=== PATIENT | male | born 1965 | race Caucasian/White ===

== ENCOUNTER → 2024-01-20 12:39 | Outpatient (REF) | payer MEDICARE, SELFPAY ==
[2024-01-23 12:44] LABS: CD4 % of Cells Analyzed 25 % (32-64); CD4 Absolute Count 539 cells/uL (430-1800)
[2024-01-24 15:39] LABS: HIV-1 Quan NAAT Interpretation Detected (Not Detected); HIV-1 Quant NAAT (copies/ml) 54 cpy/mL; HIV-1 Quant NAAT (log copy/mL) 1.73 log cpy/mL
== END ==
LOC: HWLAB 12:39
PROVIDERS: ATTENDING PHYSICIAN Student in an Organized Health Care Education/Training Program; FAMILY PHYSICIAN Internal Medicine
DX: B20 Human immunodeficiency virus [HIV] disease (principal)
CPT/HCPCS: 36415; 86361; 87536

== ENCOUNTER → 2024-02-09 15:50 | Outpatient (REF) | payer MEDICARE, SELFPAY ==
[2024-02-12 15:52] LABS: Aptima Media Type MultiTest Swab; Chlamydia trachomatis by TMA Negative (Negative); Neisseria gonorrhoeae by TMA Negative (Negative); Specimen Source Rectal; Specimen Source Throat
== END ==
LOC: CLAB 15:50
PROVIDERS: ATTENDING PHYSICIAN Student in an Organized Health Care Education/Training Program
DX: Z72.52 High risk homosexual behavior (principal)
CPT/HCPCS: 87491; 87591

== ENCOUNTER → 2024-03-09 12:57 | Outpatient (REF) | payer MEDICARE, SELFPAY ==
[2024-03-13 06:08] LABS: HPV, High Risk Detected; HPV, High Risk Source Anal
[2024-03-21 07:41] LABS: HPV Genotype 16 Not Detected; HPV Genotype 18/45 by TMA Not Detected; HPV Genotype Source Anal
== END ==
LOC: CLAB 12:57
PROVIDERS: ATTENDING PHYSICIAN Surgery
DX: Z86.19 Personal history of other infectious and parasitic diseases (principal)
CPT/HCPCS: 87624; 87625; 88112

== ENCOUNTER → 2024-04-11 16:05 | Outpatient (REF) | payer MEDICARE, SELFPAY ==
[2024-04-12 16:06] LABS: Syphilis/T. pallidum Ab Reflex Negative (Negative)
== END ==
LOC: REG 16:05
PROVIDERS: ATTENDING PHYSICIAN Student in an Organized Health Care Education/Training Program; FAMILY PHYSICIAN Internal Medicine
DX: Z72.52 High risk homosexual behavior (principal)
CPT/HCPCS: 36415; 86780; 87491; 87591

== ENCOUNTER 2024-05-18 06:33 | Day surgery (SDC) | payer MEDICARE, SELFPAY ==
[2024-05-17 13:41] VITALS: BMI 28.4
[2024-05-18] VITALS (13 sets, daily range): BP systolic 108–143; BP diastolic 70–89; BMI 28.4
[2024-05-18] MEDS: CELEBREX 200 MG PO (10:04)
[2024-05-18] MEDS: TYLENOL 1000 MG PO (10:04)
[2024-05-18] MEDS: NORMOSOL-R 1000 IV (10:04)
--- NOTE | 2024-05-18 13:50 | W.IMMPOSTOP ---
Surgical Immed Post Op Note
-
Primary Surgeon: Melvin Patel MD
Assisting Surgeon: None
Pre-op Diagnosis: Anal HSIL (ie- anal dysplasia), h/o HIV
Post-op Diagnosis: Same
Procedure Performed: High-resolution anoscopy, multiple biopsies, fulguration
Anesthesia Type: Sedation converted to general intraoperatively, with local
Specimen / Cultures: Multiple specimens, per op note
Estimated Blood Loss: 10 mL
Complications: During surgery, anesthesia noted desaturation; surgery was halted and patient was placed back on stretcher in supine position with return of saturation; patient was then intubated for general anesthesia
Operative Findings: Superficial (i.e. within the first 1 to 2 cm of the anal verge) circumferential acetowhite/Lugol's negative patch, multiple biopsies; areas of mosaicism noted deep in the anal canal near transformation zone, multiple biopsies; 60
mL of 0.25% Marcaine with dexamethasone injected perianally and for a intramuscular block (no pudendal nerve block due to prior history of urinary retention after hemorrhoidectomy)
--- NOTE | 2024-05-18 13:54 | OR.RPT ---
Operative Report
Operative Report
DATE OF OPERATION: 05/18/2024
SURGEON: Melvin Patel MD
PREOPERATIVE DIAGNOSIS: Anal high-grade squamous intraepithelial lesion, history of HIV
POSTOPERATIVE DIAGNOSIS: Same
OPERATION: Exam under anesthesia, high-resolution anoscopy, multiple anal biopsies, fulguration of lesions
ASSISTANTS:
1. None
ANESTHESIA: MAC converted to general, with local
ESTIMATED BLOOD LOSS: 10 mL
FINDINGS:
1. Circumferential band in the distal anal canal, within 1.5 cm from the anal verge, that was acetowhite and Lugol's negative; obtained biopsies in the right lateral, right lateral/anterior, anterior, left lateral, and posterior positions;
fulgurated at about 25% of the area associated with biopsy sites
2. Proximal anal canal was also acetowhite but Lugol's positive
3. Along the transformation zone, 3 areas of mosaicism; obtain biopsies in the deep right lateral, deep anterior and deep posterior positions
SPECIMENS:
1. Right lateral anal biopsy
2. Right lateral anterior anal biopsy
3. Deep right lateral anal biopsy
4. Deep anterior anal biopsy
5. Anterior anal biopsy
6. Left lateral anal biopsy
7. Deep posterior anal biopsy
8. Posterior anal biopsy
DRAINS: None
COMPLICATIONS: Oxygen desaturation at the beginning of case requiring conversion to general
INDICATIONS: The patient is a 59-year-old male who has a history of HIV, well-controlled, and was discovered to have high-grade squamous intraepithelial lesion on an anal Pap. Therefore, the patient was recommended to have hide�resolution anoscopy
with possible biopsy and fulguration. After discussion with the patient, it was determined to be better to perform the procedure with anesthesia as opposed to the office. The operation was discussed with the patient in detail, including the risks,
benefits and alternatives. Risks described included, but not limited to bleeding, infection, urinary retention, damage to nearby structures such as the anal sphincter, fecal incontinence, anal stenosis, missed lesions, recurrence, progression to
anal cancer despite monitoring and treatment, reaction to the reagents used, and anesthetic risks. The patient understood and agreed to proceed. The consent was signed and placed in the chart.
PROCEDURE IN DETAIL: The patient was taken to the operating room. The patient was then placed on the operating table in prone position. Sequential compression devices were placed bilaterally. Sedation was commenced without complication. Two seat
belts were secured around the legs and upper back. The buttocks were taped apart. The perineum was shaved, prepped and draped in the usual fashion. A time-out was then performed verifying the correct patient, procedure, operative site,
positioning, and special equipment.
Local anesthesia used was a mixture of 60 mL of 0.25% Marcaine without epinephrine and 0.6 mg of dexamethasone. 40 mL was injected perianally at the beginning of the case. The anorectal exam was performed assessing all four quadrants of the anal
canal using Hill-Terry retractors in progressively increasing size. There were a number of small external hemorrhoids circumferentially that were not thrombosed, irritated or bleeding. These were left alone. There were small to moderate-sized
3�column hemorrhoids with some mild irritation but not excessively swollen or bleeding. These were left alone to focus on the high-resolution anoscopy with possible biopsy. No other obvious lesions were noted in the perianal region or anal canal.
I placed a Ray-harjinder soaked in 5% acetic acid within the anal canal and folded an external portion of it to cover the richi-anal region. This was left in place for 3 minutes and then removed. The anal canal was again visualized with Hill-Furguson
retrators. Each quadrant was examined using the laparoscope on highest zoom, allowing for high-resolution. Lugol's 2% solution was then swabbed on to each quadrant under direct visualization using high-resolution. In the right lateral position,
there was a band of acetowhite/Lugol's negative within the first 1.5 cm of the anal canal (i.e.�distal anal canal). I took 2 superficial biopsies in the right lateral and right lateral anterior positions (biopsies #1 and 2). At this moment,
anesthesia noted that the patient was having trouble breathing and was having desaturations on the monitor. After a quick discussion with anesthesia, we halted the procedure, removed the drapes and placed the patient back on the stretcher in supine
position to improve his oxygenation. His oxygen saturation improved within 1-2 minutes. In order to proceed, anesthesia decided to intubate the patient and proceed with general anesthesia. After the patient was intubated, he was placed back on
the operating room table in prone position with gel pads in place. His arms were secured to the arm boards and two seatbelts were secured over his upper back and lower extremities. The buttocks were taped apart and the perianal area was prepped
and draped again in a sterile fashion. The procedure was restarted. I placed another Ray-Harjinder soaked in 5% acetic acid within the anal canal with an external portion of it covering the perianal region. After 2 minutes, this was removed.
I evaluated the right lateral quadrant again. Using Bovie electrocautery, I obtained hemostasis and superficially cauterized the area of the biopsies I had just taken (about 20% of the quadrant). I noted some mosaicism deep in the anal canal near
the transformation zone, I took a superficial biopsy of this (biopsy #3). I then obtained hemostasis with electrocautery. No other concerning lesions were noted. I then checked the anterior quadrant. Again noted was a band of acetowhite/Lugol's
negative within the first 1.5 cm of the anal canal as well as mosaicism near the transformation zone. Each of these areas were biopsied respectively (biopsy #4 and 5) and hemostasis was controlled with electrocautery. I evaluated the left lateral
quadrant. Again was noted a band of acetowhite/Lugol's negative within the first 1.5 cm of the anal canal, which was biopsied (biopsy #6). No other areas of concern were noted. I then evaluated the posterior quadrant. Again noted was a band of
acetowhite/Lugol's negative within the first 1.5 cm of the anal canal as well as mosaicism near the transformation zone. Each area was biopsied (biopsies #7 and 8) and hemostasis confirmed with electrocautery.
At the end of the case, the remaining 20 mL of local were injected around the surgical site and perianally. A pudendal nerve block was not performed due to his previous history of urinary retention after hemorrhoid surgery. Hemostasis was
reassessed once more using the small Hill-Terry and was confirmed. A pea-sized amount of Dibucaine was then applied to the external portion of the wound.
At this point, the procedure was complete. All needle, sponge and instrument counts were correct. The patient tolerated the procedure well and was transferred to the recovery room in stable condition with gauze dressing in place secured with silk
tape.
DICTATED BY: Melvin Patel MD
== END 2024-05-18 16:38 | disposition home or self-care (01) ==
LOC: SDS 06:33
PROVIDERS: ATTENDING PHYSICIAN Surgery; FAMILY PHYSICIAN Internal Medicine; OTHER PHYSICIAN Student in an Organized Health Care Education/Training Program
DX: D01.3 Carcinoma in situ of anus and anal canal (principal); K62.82 Dysplasia of anus; Z21 Asymptomatic human immunodeficiency virus [HIV] infection status
CPT/HCPCS: 46924; 46607; 88305; 36415; 88341; 88342; 93005

== ENCOUNTER → 2024-06-01 14:44 | Outpatient (REF) | payer MEDICARE, SELFPAY | LOC: HWRAD 14:44 | PROVIDERS: ATTENDING PHYSICIAN Internal Medicine Critical Care Medicine; FAMILY PHYSICIAN Internal Medicine | DX: R91.8 Other nonspecific abnormal finding of lung field (principal) | CPT/HCPCS: 71250 ==

== ENCOUNTER 2024-07-05 23:07 | Emergency (ER) | payer MEDICARE, SELFPAY ==
[2024-07-05 23:15] VITALS: BP 114/78
[2024-07-06 00:38] VITALS: BP 126/89; BMI 27.6
[2024-07-06 01:09] LABS: Hematocrit 36.6 % (39.0-52.0); Hemoglobin 12.2 g/dL (13.0-18.0); Mean Corp Hgb Conc. 33.3 g/dL (33.0-37.0); Mean Corpuscular Volume 77.9 fL (80.0-94.0); Mean Platelet Volume 9.5 fL (7.4-10.4); Platelet Count 247 10^3/uL (130-400); Red Cell Dist. Width 15.4 % (11.5-14.5); White Blood Cell Count 7.5 10^3/uL (4.8-10.8)
[2024-07-06 01:23] LABS: ALT (SGPT) 21 U/L (0-50); AST (SGOT) 33 U/L (17-59); Albumin 4.2 g/dl (3.5-5.0); Alkaline Phosphatase 116 U/L (38-126); Blood Urea Nitrogen 22 mg/dl (9-20); Carbon Dioxide 26 mmol/L (22-30); Chloride 107 mmol/L (98-107); Estimated Creatinine Clearance 65 ml/min; Glucose 93 mg/dl (70-99); Potassium 4.6 mmol/L (3.5-5.1); Sodium 140 mmol/L (135-145); Total Bilirubin 0.4 mg/dl (0.2-1.3); eGFR > 60.00
--- NOTE | 2024-07-06 01:28 | ED.GENMED ---
History of Present Illness
General
Chief Complaint: Weakness
Source: patient
Exam Limitations: none
Time Seen by Provider: 07/06/24 00:58
Nursing documentation reviewed up to this point in time: agreed with
History of Present Illness
History of Present Illness:
59-year-old male presenting department complaining weakness, breaking out in sweats, heart pounding. He also complains of swelling in his left neck. He was treated with antibiotics for it. He has a history of HIV, and states his levels, viral
load have been normal.
Past History
Past History
ED Past Medical History: CAD, Cancer (Skin CA), CHF, COPD (Emphysema), GERD, HTN, Hypercholesterolemia, [place] (X 3), Psychiatric (Anxiety, Depression, Panic disorder) and Other (HIV, DVT, bilateral iliac aneurysm, chronic back pain, Duodenal hernia,
PNA, PE, Renal calculus, Pilonidal cyst)
ED Past Surgical History: Cardiac (Stents X3), Orthopedic (Lumbar discectomy) and Other (Hemorrhoidectomy)
Social History
Tobacco: Former smoker
Alcohol: Occasional (3 bottles in one week)
Drug: Marijuana
Personal: Other (Seperated)
Living: with roommate
Employment: Disabled
Family History
Family History: CAD
Review of Systems
Review of Systems
Allergies reviewed?: Yes
All Other Systems: Not applicable
Constitutional: Reports no symptoms
EENT: Reports other (Neck swelling)
Respiratory: Reports no symptoms
Cardiac: Reports diaphoresis; Denies chest pain
ABD/GI: Reports no symptoms
: Reports no symptoms
Musculoskeletal: Reports no symptoms
Skin: Reports no symptoms
Neurological: Reports weakness
Endocrine: Reports no symptoms
Hematologic/Lymphatic: Reports no symptoms
Psychiatric: Reports no symptoms
Phy Exam
Physical Exam
Physical Exam:
Physical Exam
General: no apparent distress, not acutely ill
Neck: supple. no meningeal signs. normal posterior pharynx, swelling left anterior cervical chain
Heart: s1/s2 regular rate and rhythm, no murmur. equal radial
pulses.
HEENT: Pupils equal round reactive to light, EOMI
Lungs: no acute respiratory distress. clear bilaterally
Abdomen: normal bowel sounds. not tender. no CVAT
Neuro: alert and oriented. no focal neurological deficits cranial nerves II through XII intact
Skin: no rash
Psychiatric: well kept. interactive and cooperative
Extremities: no edema. no calf tenderness. negative homans. good distal pulses
Course
Orders/Labs/Results
Orders:
Orders
07/06/24 00:45
Electrocardiogram (*1) Urgent
Reason for Study: Vertigo / Dizzy
07/06/24 00:46
EKG- Treatment ONCE
07/06/24 00:56
Complete Blood Count/With Diff Urgent
Comprehensive Metabolic Panel Urgent
Troponin I Urgent
07/06/24 01:27
CT Neck With Iv Contrast Urgent
Comment:
Reason For Exam: left neck swelling, diaphoretic
07/06/24 02:39
Amoxicillin [Amoxil] 500 mg PO NOW STA
Abnormal Lab Results
07/06/24
00:56
Hgb 12.2 L g/dL
(13.0-18.0)
Hct 36.6 L %
(39.0-52.0)
MCV 77.9 L fL
(80.0-94.0)
MCH 26.0 L pg
(27.0-31.0)
RDW 15.4 H %
(11.5-14.5)
Absolute Monos (auto) 0.8 H 10^3/uL
(0.1-0.6)
Monocytes % 10.7 H %
(1.7-9.3)
BUN 22 H mg/dl
(9-20)
07/06/24 00:56
07/06/24 00:56
Vital Signs
Initial and Last Documented VS:
Initial Vital Signs
Temp Pulse Resp BP Pulse Ox
97.7 F 74 16 114/78 98
07/05/24 23:15 07/05/24 23:15 07/05/24 23:15 07/05/24 23:15 07/05/24 23:15
Last Documented Vital Signs
Temp Pulse Resp BP Pulse Ox
97.7 F 74 16 126/89 97
07/05/24 23:15 07/05/24 23:15 07/05/24 23:15 07/06/24 00:38 07/06/24 00:45
MDM/Problems Addressed
Differential Diagnosis Includes:
Abscess lymph node, uvulitis, ACS
MDM/Problems Addressed:
59-year-old male with weakness, sweats, possibly due to uvulitis. No other focal infection found. No signs of airway compromise. Stable for discharge.
Chronic conditions affecting care: Other (HIV)
*Radiology
Radiology exam reviewed: radiology read reviewed (CT neck shows signs of uvulitis and left-sided sialolith)
*Pulse Oximetry
Patient hypoxic: no
*EKG
Interpreted by ED Provider?: Yes
EKG Intrepretation Date: 07/06/24
EKG Intrepretation Time: 01:07
Interpretation: abnormal
Comparison EKG: no comparison EKG present
Heart Rate: 66
Rate: normal
Rhythm: sinus
[place]: normal axis
Interval: normal interval
QRS Pattern: right bundle branch block
Ischemia: no ischemia
*Customer Specialist Interpretation
Rate: Customer Specialist- N/A
*Critical Care Note
Total Time (30-74mins, 75-104mins- exclusive of procedures): Not Applicable
Patient Management
Social determinants of health affecting care: Living situation
Escalation/DeEscalation of care consider admission/obs:
Admit not indicated
ED Attending Note
-
Portions of this chart may have been created with voice recognition software.� Occasional wrong word or��sound alike� substitutions may have occurred due to the inherent limitations of voice recognition software.
Discharge Plan
Departure
Patient Disposition: Home (Routine Discharge)
Date of Disposition: 07/06/24
Time of Disposition: 02:41
Patient with high blood pressure during this ER visit?: Yes
Condition: Good
Discharge Problem:
Uvulitis
Instructions: Generalized Weakness (DC), BLOOD PRESSURE
Prescriptions:
New
amoxicillin 500 mg capsule
500 mg PO TID Qty: 21 0RF
No Action
citalopram 20 MG tablet
40 mg PO HS
dexlansoprazole [Dexilant] 30 MG capsule,biphase delayed releas
60 mg PO DAILY
clonazepam 0.5 MG tablet
1.5 mg PO HS
clonazepam 0.5 MG tablet
0.5 mg PO DAILY
cholecalciferol (vitamin D3) [Vitamin D3] 50 mcg (2,000 unit) Capsule
50 mcg PO DAILY
Eliquis 5 MG tablet
5 mg PO BID
Rx Instructions:
take 2.5mg until on paxlovid; resume 5mg BID when finished paxlovid
loratadine [Claritin] 10 mg Tablet
10 mg PO HS
valsartan 160 mg Tablet
160 mg PO DAILY
Biktarvy 50-200-25 mg Tablet
1 tab PO HS
Trelegy Ellipta 200-62.5-25 mcg Blister With Device
1 inh INHALATION DAILY
fluticasone propionate [Flonase] 50 mcg/actuation [place],Suspension
2 spray INTRANASAL DAILY
Marijuana
hydrocodone-acetaminophen 5-300 mg tablet
1 tab PO Q6H PRN (Reason: Pain) Qty: 14 0RF
Referrals:
Loy Castillo MD [Family Provider] - Call in 1-3 days for appt
Interventions
Interventions:
*Risk Screen - Suicide Last Done: 07/05/24 23:15
*General Assessment Last Done: 07/06/24 00:39
*Neglect/Abuse Screening Last Done: 07/05/24 23:15
ED- Fall Risk Assessment Last Done: 07/06/24 00:39
*ED COVID-19 Vaccine History Last Done: 07/06/24 00:39
ED- Cardiac Assessment Last Done: 07/06/24 00:39
ED- Neurological Assessment Last Done: 07/06/24 00:39
ED- Pulmonary Assessment Last Done: 07/06/24 00:39
Discharge Date and Time
Print Language: PERSIAN
[2024-07-06 01:31] LABS: Troponin I < 0.012 ng/ml
[2024-07-06 02:02] LABS: % Basophils 1.2 % (0-2); % Eosinophils 1.9 % (0-6); % Immature Granulocytes 0.1 % (0-0.5); % Lymphocytes 38.2 % (20.5-51.1); % Monocytes 10.7 % (1.7-9.3); % Neutrophils 47.9 % (42.2-75.2); Absolute Basophils 0.1 10^3/uL (0-0.2); Absolute Eosinophils 0.1 10^3/uL (0-0.7); Absolute Lymphocytes 2.9 10^3/uL (1.2-3.4); Absolute Monocytes 0.8 10^3/uL (0.1-0.6); Absolute Neutrophils 3.6 10^3/uL (1.4-6.5); Nucleated Red Blood Cells % 0 % (-)
[2024-07-06] MEDS: AMOXIL 500 MG PO (02:44)
== END 2024-07-06 02:52 | disposition home or self-care (01) ==
LOC: EMR 23:07
PROVIDERS: Student in an Organized Health Care Education/Training Program; EMERGENCY PHYSICIAN Emergency Medicine; FAMILY PHYSICIAN Internal Medicine
DX: K12.2 Cellulitis and abscess of mouth (principal); I25.10 Atherosclerotic heart disease of native coronary artery without angina pectoris; I11.0 Hypertensive heart disease with heart failure; I50.9 Heart failure, unspecified; J43.9 Emphysema, unspecified; E78.00 Pure hypercholesterolemia, unspecified; F41.8 Other specified anxiety disorders; I25.2 Old myocardial infarction; G89.29 Other chronic pain; K21.9 Gastro-esophageal reflux disease without esophagitis; Z21 Asymptomatic human immunodeficiency virus [HIV] infection status; Z82.49 Family history of ischemic heart disease and other diseases of the circulatory system; Z85.828 Personal history of other malignant neoplasm of skin; Z86.718 Personal history of other venous thrombosis and embolism; Z87.442 Personal history of urinary calculi; Z87.891 Personal history of nicotine dependence; Z95.5 Presence of coronary angioplasty implant and graft
CPT/HCPCS: 99284; 70491; 80053; 84484; 85025; 93005; Q9967

== ENCOUNTER → 2024-08-15 13:03 | Outpatient (REF) | payer MEDICARE, SELFPAY ==
[2024-08-15 16:10] LABS: ALT (SGPT) 17 U/L (0-50); AST (SGOT) 24 U/L (17-59); Albumin 3.9 g/dl (3.5-5.0); Alkaline Phosphatase 103 U/L (38-126); Blood Urea Nitrogen 14 mg/dl (9-20); Calcium 9.1 mg/dl (8.4-10.2); Carbon Dioxide 23 mmol/L (22-30); Chloride 106 mmol/L (98-107); Glucose 100 mg/dl (70-99); HDL Cholesterol 46 mg/dl; LDL Cholesterol, Calculated 135 mg/dl; Potassium 4.1 mmol/L (3.5-5.1); Sodium 141 mmol/L (135-145); Total Bilirubin 0.4 mg/dl (0.2-1.3); Total Cholesterol 198 mg/dl (50-199); Total Protein 6.8 g/dl (6.3-8.2); Triglyceride 86 mg/dl (10-149); Very Low Density Lipoprotein 17 mg/dl (0-30); eGFR > 60.00
[2024-08-15 16:25] LABS: Vitamin D, 25-OH*** 43.9 ng/mL (30-80)
[2024-08-15 16:39] LABS: PSA, Total - Screen 1.23 ng/ml (0.0-4.0); TSH 1.18 uIU/ml (0.47-4.68)
[2024-08-15 16:45] LABS: Urine Albumin Negative (Neg - Trace); Urine Bilirubin 1+ (Negative); Urine Character Clear (Clear); Urine Color Yellow; Urine Glucose Negative (Negative); Urine Ketone Negative (Negative); Urine Leukocyte Negative (Negative); Urine Nitrite Negative (Negative); Urine Occult Blood Trace (Negative); Urine Urobilinogen 1+ (Neg - 1+)
[2024-08-15 16:49] LABS: Hematocrit 37.7 % (39.0-52.0); Hemoglobin 12.1 g/dL (13.0-18.0); Mean Corp Hgb Conc. 32.1 g/dL (33.0-37.0); Mean Corpuscular Hgb 24.9 pg (27.0-31.0); Mean Corpuscular Volume 77.6 fL (80.0-94.0); Platelet Count 274 10^3/uL (130-400); Red Blood Cell Count 4.86 10^6/uL (4.70-6.10); Red Cell Dist. Width 15.7 % (11.5-14.5)
[2024-08-15 16:53] LABS: Urine Mucus Many; Urine Squamous Cell 0-2 /LPF (Few)
[2024-08-15 16:54] LABS: Urine Bacteria Few (Negative); Urine White Cell 0-2 /HPF (0-5)
[2024-08-15 17:08] LABS: % Basophils 1.4 % (0-2); % Eosinophils 2.8 % (0-6); % Immature Granulocytes 0.2 % (0-0.5); % Lymphocytes 39.9 % (20.5-51.1); % Monocytes 10.7 % (1.7-9.3); Absolute Basophils 0.1 10^3/uL (0-0.2); Absolute Eosinophils 0.1 10^3/uL (0-0.7); Absolute Monocytes 0.5 10^3/uL (0.1-0.6); Absolute Neutrophils 2.3 10^3/uL (1.4-6.5); Nucleated Red Blood Cells % 0 % (-)
[2024-08-16 09:29] LABS: Glycohemoglobin (HgbA1c) 5.9 % (4.0-5.6)
== END ==
LOC: HWLAB 13:03
PROVIDERS: ATTENDING PHYSICIAN Student in an Organized Health Care Education/Training Program; FAMILY PHYSICIAN Internal Medicine
DX: N52.9 Male erectile dysfunction, unspecified (principal); I10 Essential (primary) hypertension; F41.9 Anxiety disorder, unspecified; R79.89 Other specified abnormal findings of blood chemistry; E78.5 Hyperlipidemia, unspecified; R73.9 Hyperglycemia, unspecified; E55.9 Vitamin D deficiency, unspecified; Z00.00 Encounter for general adult medical examination without abnormal findings; Z21 Asymptomatic human immunodeficiency virus [HIV] infection status; N40.1 Benign prostatic hyperplasia with lower urinary tract symptoms; B20 Human immunodeficiency virus [HIV] disease
CPT/HCPCS: 36415; 80053; 80061; 81003; 81015; 82306; 83036; 84443; 85025; G0103

== ENCOUNTER → 2024-08-16 14:28 | Outpatient (REF) | payer MEDICARE, SELFPAY ==
[2024-08-16 16:47] LABS: HIV Combo Reactive (Negative)
== END ==
LOC: REG 14:28
PROVIDERS: ATTENDING PHYSICIAN Internal Medicine
DX: A64 Unspecified sexually transmitted disease (principal)
CPT/HCPCS: 36415; 86701; 86702; 86780; 87389; 87491; 87591

== ENCOUNTER 2024-09-07 05:02 | Emergency (ER) | payer MEDICARE, OTHER, SELFPAY ==
[2024-09-07] VITALS (7 sets, daily range): BP systolic 114–138; BP diastolic 71–94
--- NOTE | 2024-09-07 06:31 | ED.GENMED ---
History of Present Illness
General
Chief Complaint: Bowel Problem
Source: patient
Time Seen by Provider: 09/07/24 06:02
History of Present Illness
History of Present Illness:
59-year-old male presents to the emergency room complaining of of significant heartburn, nausea, diarrhea which is been bothering him for the past few days but particular over the past 24 hours. He has not had much oral intake. He states his
stools have become loose and oily. He denies any recent travel. He denies any recent antibiotics. No known fever. Patient is HIV positive but is compliant with his medications. He states his CD4 count was greater than 500. His viral load is
'almost' undetectable. Patient states that he recently participated in anolingus and is concerned that he may have contracted an infection.
Past History
Past History
ED Past Medical History: CAD, Cancer (Skin CA), CHF, COPD (Emphysema), GERD, HTN, Hypercholesterolemia, [place] (X 3), Psychiatric (Anxiety, Depression, Panic disorder) and Other (HIV, DVT, bilateral iliac aneurysm, chronic back pain, Duodenal hernia,
PNA, PE, Renal calculus, Pilonidal cyst)
ED Past Surgical History: Cardiac (Stents X3), Orthopedic (Lumbar discectomy) and Other (Hemorrhoidectomy)
Social History
Tobacco: Former smoker
Alcohol: Occasional (3 bottles in one week)
Drug: Marijuana
Personal: Other (Seperated)
Living: with roommate
Employment: Disabled
Family History
Family History: CAD
Phy Exam
Physical Exam
Physical Exam:
General: Awake, Alert, Oriented X3. No acute distress.
Vitals: unremarkable
Head: Atraumatic
Eyes: Pupils equal, EOMI
Throat: Airway intact, no exudates
Neck: Trachea midline
Lungs: Clear and equal b/l
Heart: Regular rate, no murmurs
Abd: Soft, mild upper abd tenderness, mildly distended but not firm, No pulsatile mass
Neuro: Nonfocal
Skin: Warm, dry, no rash
Extremities: pulses equal b/l, no edema
Course
Orders/Labs/Results
Orders:
Orders
09/07/24 06:26
Cardiac Monitoring- Treatment ONCE
0.9% Sodium Chloride 1000 ml [Nss] 1,000 ml IV BOLUS
Famotidine [Pepcid] 20 mg IV NOW STA
Mag Hydrox/Al Hydrox/Simeth [Maalox] 30 ml Phenobarb/Hyoscy/Atropine/Scop [] 10 ml Viscous Lidocaine 2% [Xylocaine Viscous Cup] 10 ml PO NOW
Ondansetron Injectable [Zofran] 4 mg IV NOW STA
09/07/24 06:27
Electrocardiogram (*1) Stat
Reason for Study: Abdominal Pain
CT Abd/Pel (IV only)-DH only Urgent
Comment:
Reason For Exam: abd pain, nausea
EKG- Treatment ONCE
09/07/24 06:45
Complete Blood Count/With Diff Urgent
Comprehensive Metabolic Panel Urgent
Lipase Urgent
09/07/24 06:47
Mag Hydrox/Al Hydrox/Simeth [Maalox] 30 ml .ROUTE .STK-MED ONE
Phenobarb/Hyoscy/Atropine/Scop [] 10 ml .ROUTE .STK-MED ONE
09/07/24 06:48
Viscous Lidocaine 2% [Xylocaine Viscous Cup] 15 ml .ROUTE .STK-MED ONE
09/07/24 08:27
Acetaminophen [Tylenol] 650 mg .ROUTE .STK-MED ONE
Acetaminophen [Tylenol] 650 mg PO NOW STA
Abnormal Lab Results
09/07/24
06:45
RBC 4.65 L 10^6/uL
(4.70-6.10)
Hgb 11.8 L g/dL
(13.0-18.0)
Hct 36.0 L %
(39.0-52.0)
MCV 77.4 L fL
(80.0-94.0)
MCH 25.4 L pg
(27.0-31.0)
MCHC 32.8 L g/dL
(33.0-37.0)
RDW 16.1 H %
(11.5-14.5)
Monocytes % 9.4 H %
(1.7-9.3)
Glucose 101 H mg/dl
(70-99)
09/07/24 06:45
09/07/24 06:45
Vital Signs
Initial and Last Documented VS:
Initial Vital Signs
Temp Pulse Resp BP Pulse Ox
98.7 F 88 26 114/92 96
09/07/24 05:04 09/07/24 05:04 09/07/24 05:04 09/07/24 05:04 09/07/24 05:04
Last Documented Vital Signs
Temp Pulse Resp BP Pulse Ox
98.7 F 67 18 129/73 96
09/07/24 05:04 09/07/24 11:54 09/07/24 09:30 09/07/24 11:54 09/07/24 11:54
MDM/Problems Addressed
Differential Diagnosis Includes:
Viral gastroenteritis, C. difficile, dehydration
MDM/Problems Addressed:
Patient presents with nausea vomiting diarrhea. Since he has been in the emergency room he has not passed any stool. Stool studies were ordered but patient has not been able to provide a specimen. His labs showed normal white count, normal
chemistries. A CT of the abdomen and pelvis was performed which showed some slightly dilated fluid filled loops of small bowel consistent with enteritis. Patient's abdominal exam is benign. Stable for discharge home, brat diet, follow-up with
primary.
*Radiology
Radiology exam reviewed: radiology read reviewed
*Pulse Oximetry
Patient hypoxic: no
*Critical Care Note
Total Time (30-74mins, 75-104mins- exclusive of procedures): Not Applicable
ED Attending Note
-
Portions of this chart may have been created with voice recognition software.� Occasional wrong word or��sound alike� substitutions may have occurred due to the inherent limitations of voice recognition software.
Discharge Plan
Departure
Patient Disposition: Home (Routine Discharge)
Date of Disposition: 09/07/24
Time of Disposition: 11:24
Patient with high blood pressure during this ER visit?: No
Condition: Good
Discharge Problem:
Diarrhea, Nausea & vomiting
Instructions: Diarrhea in teens and adults, Dehydration, Adult (DC)
Prescriptions:
No Action
citalopram 20 MG tablet
40 mg PO HS
dexlansoprazole [Dexilant] 30 MG capsule,biphase delayed releas
60 mg PO DAILY
clonazepam 0.5 MG tablet
1.5 mg PO HS
clonazepam 0.5 MG tablet
0.5 mg PO DAILY
cholecalciferol (vitamin D3) [Vitamin D3] 50 mcg (2,000 unit) Capsule
50 mcg PO DAILY
Eliquis 5 MG tablet
5 mg PO BID
Rx Instructions:
take 2.5mg until on paxlovid; resume 5mg BID when finished paxlovid
loratadine [Claritin] 10 mg Tablet
10 mg PO HS
valsartan 160 mg Tablet
160 mg PO DAILY
Biktarvy 50-200-25 mg Tablet
1 tab PO HS
Trelegy Ellipta 200-62.5-25 mcg Blister With Device
1 inh INHALATION DAILY
fluticasone propionate [Flonase] 50 mcg/actuation [place],Suspension
2 spray INTRANASAL DAILY
Marijuana
hydrocodone-acetaminophen 5-300 mg tablet
1 tab PO Q6H PRN (Reason: Pain) Qty: 14 0RF
amoxicillin 500 mg capsule
500 mg PO TID Qty: 21 0RF
Referrals:
PRIVATE,PHYSICIAN [Family Provider] -
Interventions
Interventions:
*Risk Screen - Suicide Last Done: 09/07/24 05:04
*General Assessment Last Done: 09/07/24 05:53
*Neglect/Abuse Screening Last Done: 09/07/24 05:04
ED- Fall Risk Assessment Last Done: 09/07/24 05:53
*ED COVID-19 Vaccine History Last Done: 09/07/24 05:53
*Nursing Disposition Last Done: 09/07/24 11:54
GR-Gmkloi-Ztefwbkjdu Assessment Last Done: 09/07/24 05:53
Discharge Date and Time
Discharge Date/Time: 09/07/24 11:56
Print Language: CHILEAN
[2024-09-07] MEDS: NSS 1000 IV (06:50)
[2024-09-07] MEDS: PEPCID 20 MG IV (06:50)
[2024-09-07] MEDS: MAALOX 50 PO (06:50)
[2024-09-07 06:51] LABS: % Basophils 0.7 % (0-2); % Eosinophils 2.9 % (0-6); % Immature Granulocytes 0.2 % (0-0.5); % Lymphocytes 39.1 % (20.5-51.1); % Monocytes 9.4 % (1.7-9.3); % Neutrophils 47.7 % (42.2-75.2); Absolute Eosinophils 0.2 10^3/uL (0-0.7); Absolute Lymphocytes 2.3 10^3/uL (1.2-3.4); Absolute Monocytes 0.6 10^3/uL (0.1-0.6); Absolute Neutrophils 2.8 10^3/uL (1.4-6.5); Hemoglobin 11.8 g/dL (13.0-18.0); Mean Corp Hgb Conc. 32.8 g/dL (33.0-37.0); Mean Corpuscular Hgb 25.4 pg (27.0-31.0); Mean Corpuscular Volume 77.4 fL (80.0-94.0); Mean Platelet Volume 9.8 fL (7.4-10.4); Nucleated Red Blood Cells % 0 % (-); Platelet Count 274 10^3/uL (130-400); Red Blood Cell Count 4.65 10^6/uL (4.70-6.10); Red Cell Dist. Width 16.1 % (11.5-14.5); White Blood Cell Count 5.9 10^3/uL (4.8-10.8)
[2024-09-07] MEDS: ZOFRAN 4 MG IV (06:51)
[2024-09-07] MEDS: TYLENOL 650 MG PO (08:28)
[2024-09-07 08:56] LABS: ALT (SGPT) 17 U/L (0-50); AST (SGOT) 29 U/L (17-59); Albumin 3.7 g/dl (3.5-5.0); Alkaline Phosphatase 94 U/L (38-126); Blood Urea Nitrogen 11 mg/dl (9-20); Calcium 9.6 mg/dl (8.4-10.2); Carbon Dioxide 22 mmol/L (22-30); Chloride 106 mmol/L (98-107); Glucose 101 mg/dl (70-99); Potassium 4.2 mmol/L (3.5-5.1); Sodium 140 mmol/L (135-145); Total Bilirubin 0.7 mg/dl (0.2-1.3); Total Protein 6.4 g/dl (6.3-8.2); eGFR > 60.00
[2024-09-07 09:19] LABS: Lipase 135 U/L (23-300)
== END 2024-09-07 11:56 | disposition home or self-care (01) ==
LOC: EMR 05:02
PROVIDERS: EMERGENCY PHYSICIAN Emergency Medicine
DX: R19.7 Diarrhea, unspecified (principal); R11.2 Nausea with vomiting, unspecified; R12 Heartburn; R14.0 Abdominal distension (gaseous); R10.9 Unspecified abdominal pain; K52.9 Noninfective gastroenteritis and colitis, unspecified; Z21 Asymptomatic human immunodeficiency virus [HIV] infection status; I25.10 Atherosclerotic heart disease of native coronary artery without angina pectoris; I11.0 Hypertensive heart disease with heart failure; I50.9 Heart failure, unspecified; E78.00 Pure hypercholesterolemia, unspecified; F32.A Depression, unspecified; F41.9 Anxiety disorder, unspecified; K21.9 Gastro-esophageal reflux disease without esophagitis; I72.3 Aneurysm of iliac artery; G89.29 Other chronic pain; M54.9 Dorsalgia, unspecified; J43.9 Emphysema, unspecified; F41.0 Panic disorder [episodic paroxysmal anxiety]; I25.2 Old myocardial infarction; Z95.5 Presence of coronary angioplasty implant and graft; Z87.442 Personal history of urinary calculi; Z86.718 Personal history of other venous thrombosis and embolism; Z87.891 Personal history of nicotine dependence; Z85.828 Personal history of other malignant neoplasm of skin; Z79.01 Long term (current) use of anticoagulants; Z88.1 Allergy status to other antibiotic agents; Z88.8 Allergy status to other drugs, medicaments and biological substances
CPT/HCPCS: 99285; 96375; 96361; 96374; 74177; 80053; 83690; 85025; 93005; Q9967

== ENCOUNTER → 2024-09-09 08:08 | Outpatient (REF) | payer MEDICARE, OTHER, SELFPAY ==
[2024-09-10 17:33] LABS: CD4 % of Cells Analyzed 27 % (32-64); CD4 Absolute Count 429 cells/uL (430-1800)
== END ==
LOC: HWLAB 08:08
PROVIDERS: ATTENDING PHYSICIAN Student in an Organized Health Care Education/Training Program; FAMILY PHYSICIAN Internal Medicine
DX: B20 Human immunodeficiency virus [HIV] disease (principal)
CPT/HCPCS: 36415; 86361; 87536

== ENCOUNTER 2024-10-02 19:20 | Emergency (ER) | payer MEDICARE, OTHER, SELFPAY ==
[2024-10-02] VITALS (7 sets, daily range): BP systolic 93–108; BP diastolic 65–73; BMI 25.5
--- NOTE | 2024-10-02 20:29 | ED.GENMED ---
History of Present Illness
General
Chief Complaint: Cold/Flu/URI Symptoms
Source: patient
Exam Limitations: none
Time Seen by Provider: 10/02/24 19:36
Nursing documentation reviewed up to this point in time: agreed with
History of Present Illness
History of Present Illness:
59-year-old male past medical history of DVT PE currently on Eliquis, COPD, heart disease CHF presenting to the emergency department today with concerns of upper respiratory symptoms cough fever body aches worsening today fever this morning mild
symptoms over the past 4 days. Specific chest pain shortness of breath
Past History
Past History
ED Past Medical History: CAD, Cancer (Skin CA), CHF, COPD (Emphysema), GERD, HTN, Hypercholesterolemia, [place] (X 3), Psychiatric (Anxiety, Depression, Panic disorder) and Other (HIV, DVT, bilateral iliac aneurysm, chronic back pain, Duodenal hernia,
PNA, PE, Renal calculus, Pilonidal cyst)
ED Past Surgical History: Cardiac (Stents X3), Orthopedic (Lumbar discectomy) and Other (Hemorrhoidectomy)
Social History
Tobacco: Former smoker
Alcohol: Occasional (3 bottles in one week)
Drug: Marijuana
Personal: Other (Seperated)
Living: with roommate
Employment: Disabled
Family History
Family History: CAD
Review of Systems
Review of Systems
Allergies reviewed?: Yes
All Other Systems: ROS reviewed and negative except as documented in HPI and ROS
Phy Exam
Physical Exam
Physical Exam:
GENERAL: Alert , in no apparent distress
EYE: pupils equal and reactive
NECK: Supple, no significant adenopathy.
ENT: o/p clr, mmm.
CARDIAC: Regular rate and rhythm .
LUNGS: Clear breath sounds bilaterally, no acute respiratory distress, no wheezes/rales/rhonchi
ABDOMEN: Soft, without focal tenderness, no r/g, no cvat
NEUROLOGICAL: Alert and oriented, no focal neuro deficits
SKIN: Warm and dry, skin intact.
MUSCULOSKELETAL: No edema, well perfused.
PSYCH: Normal and appropriate interaction.
Course
Orders/Labs/Results
Orders:
Orders
10/02/24 20:23
Acetaminophen [Tylenol] 650 mg PO NOW STA
10/02/24 20:28
EKG [Electrocardiogram (*1)] Urgent
Reason for Study: Shortness of Breath
Chest [CR Chest - 2 Views ] Urgent
Comment:
Reason For Exam: cough fever HIV hx
10/02/24 20:29
EKG- Treatment ONCE
0.9% Sodium Chloride 1000 ml [Nss] 1,000 ml IV BOLUS
10/02/24 21:14
CBC/With Diff [Complete Blood Count/With Diff] Urgent
CMP [Comprehensive Metabolic Panel] Urgent
COVID-19 Antigen Urgent
Source: Nasal Swab
Lactic Acid Urgent
Influenza A+B Rapid Molecular Urgent
ROSARIO Source: Nasal Swab
Specimen Description:
10/02/24 22:26
Urinalysis Reflex To Culture Urgent
Date Specimen was Collected: 10/02/24
Time Specimen was Collected: 22:25
Urine Microscopic Reflex Cult Urgent
10/02/24 22:53
Azithromycin [Zithromax] 500 mg PO NOW STA
Abnormal Lab Results
10/02/24 10/02/24
21:14 22:26
Hgb 12.8 L g/dL
(13.0-18.0)
Hct 38.4 L %
(39.0-52.0)
MCV 76.6 L fL
(80.0-94.0)
MCH 25.5 L pg
(27.0-31.0)
RDW 16.3 H %
(11.5-14.5)
Absolute Monos (auto) 1.2 H 10^3/uL
(0.1-0.6)
Monocytes % 12.4 H %
(1.7-9.3)
Glucose 108 H mg/dl
(70-99)
Urine Bilirubin 1+ A
(Negative)
Urine Urobilinogen 3+ A
(Neg - 1+)
Leukocyte Esterase Rfl Trace A
(Negative)
10/02/24 21:14
10/02/24 21:14
Vital Signs
Initial and Last Documented VS:
Initial Vital Signs
Temp Pulse Resp BP Pulse Ox
100.2 F 93 19 101/72 97
10/02/24 19:29 10/02/24 19:29 10/02/24 19:29 10/02/24 19:29 10/02/24 19:29
Last Documented Vital Signs
Temp Pulse Resp BP Pulse Ox
100.2 F 99 17 108/68 95
10/02/24 19:29 10/02/24 21:00 10/02/24 21:00 10/02/24 21:00 10/02/24 20:30
MDM/Problems Addressed
MDM/Problems Addressed:
59-year-old male presenting to the emergency department today with concerns of initial upper respiratory symptoms over the past 4 days but over the past 2 days worsening malaise body aches and fever starting today in association with cough. Upon
arrival temperature of 100.2 heart rate around 100 blood pressure in the low 100s. Patient here well-appearing throughout stay blood pressure remaining in the low 100s but patient otherwise asymptomatic other than mild upper respiratory symptoms
while here. Patient appears stable for discharge no evidence of emergent infectious process no white count normal lactic acid. Patient advised for close outpatient follow-up. Return precautions given.
*Critical Care Note
Total Time (30-74mins, 75-104mins- exclusive of procedures): Not Applicable
ED Attending Note
-
Portions of this chart may have been created with voice recognition software.� Occasional wrong word or��sound alike� substitutions may have occurred due to the inherent limitations of voice recognition software.
Discharge Plan
Departure
Patient Disposition: Home (Routine Discharge)
Date of Disposition: 10/02/24
Time of Disposition: 22:54
Patient with high blood pressure during this ER visit?: No
Condition: Good
Covid-19: Not Applicable
Discharge Problem:
Acute viral syndrome
Instructions: Viral Syndrome (DC)
Prescriptions:
New
azithromycin 500 mg tablet
500 mg PO DAILY 2 Days Qty: 2 0RF
No Action
citalopram 20 MG tablet
40 mg PO HS
dexlansoprazole [Dexilant] 30 MG capsule,biphase delayed releas
60 mg PO DAILY
clonazepam 0.5 MG tablet
1.5 mg PO HS
clonazepam 0.5 MG tablet
0.5 mg PO DAILY
cholecalciferol (vitamin D3) [Vitamin D3] 50 mcg (2,000 unit) Capsule
50 mcg PO DAILY
Eliquis 5 MG tablet
5 mg PO BID
Rx Instructions:
take 2.5mg until on paxlovid; resume 5mg BID when finished paxlovid
loratadine [Claritin] 10 mg Tablet
10 mg PO HS
valsartan 160 mg Tablet
160 mg PO DAILY
Biktarvy 50-200-25 mg Tablet
1 tab PO HS
Trelegy Ellipta 200-62.5-25 mcg Blister With Device
1 inh INHALATION DAILY
fluticasone propionate [Flonase] 50 mcg/actuation [place],Suspension
2 spray INTRANASAL DAILY
Marijuana
hydrocodone-acetaminophen 5-300 mg tablet
1 tab PO Q6H PRN (Reason: Pain) Qty: 14 0RF
amoxicillin 500 mg capsule
500 mg PO TID Qty: 21 0RF
Referrals:
Loy Castillo MD [Family Provider] -
Activity Restrictions/Additional Instructions:
You came to the emergency department today with concerns of upper respiratory symptoms. Here you had a reassuring assessment. Please take the prescribed medication otherwise follow-up close with the primary care doctor. Return to the emergency
department for any worsening, new or concerning symptoms
Interventions
Interventions:
*Risk Screen - Suicide Last Done: 10/02/24 19:29
*General Assessment Last Done: 10/02/24 19:29
*Neglect/Abuse Screening Last Done: 10/02/24 19:29
ED- Fall Risk Assessment Last Done: 10/02/24 20:29
*ED COVID-19 Vaccine History Last Done: 10/02/24 20:29
ED- Pulmonary Assessment Last Done: 10/02/24 20:29
Discharge Date and Time
Print Language: MOHAWK
[2024-10-02] MEDS: TYLENOL 650 MG PO (21:20)
[2024-10-02] MEDS: NSS 1000 IV (21:20)
[2024-10-02 21:22] LABS: % Basophils 0.5 % (0-2); % Eosinophils 0.1 % (0-6); % Immature Granulocytes 0.1 % (0-0.5); % Lymphocytes 26.7 % (20.5-51.1); % Monocytes 12.4 % (1.7-9.3); % Neutrophils 60.2 % (42.2-75.2); Absolute Basophils 0.1 10^3/uL (0-0.2); Absolute Lymphocytes 2.6 10^3/uL (1.2-3.4); Absolute Monocytes 1.2 10^3/uL (0.1-0.6); Absolute Neutrophils 5.8 10^3/uL (1.4-6.5); Hematocrit 38.4 % (39.0-52.0); Hemoglobin 12.8 g/dL (13.0-18.0); Mean Corp Hgb Conc. 33.3 g/dL (33.0-37.0); Mean Corpuscular Hgb 25.5 pg (27.0-31.0); Mean Corpuscular Volume 76.6 fL (80.0-94.0); Mean Platelet Volume 9.8 fL (7.4-10.4); Nucleated Red Blood Cells % 0 % (-); Platelet Count 244 10^3/uL (130-400); Red Blood Cell Count 5.01 10^6/uL (4.70-6.10); Red Cell Dist. Width 16.3 % (11.5-14.5); White Blood Cell Count 9.7 10^3/uL (4.8-10.8)
[2024-10-02 21:33] LABS: Lactic Acid 1.4 mmol/L (0.7-2.0)
[2024-10-02 21:35] LABS: ALT (SGPT) 17 U/L (0-50); AST (SGOT) 27 U/L (17-59); Albumin 4.3 g/dl (3.5-5.0); Alkaline Phosphatase 104 U/L (38-126); Blood Urea Nitrogen 10 mg/dl (9-20); Calcium 9.2 mg/dl (8.4-10.2); Carbon Dioxide 23 mmol/L (22-30); Chloride 100 mmol/L (98-107); Estimated Creatinine Clearance 65 ml/min; Glucose 108 mg/dl (70-99); Potassium 4.5 mmol/L (3.5-5.1); Sodium 136 mmol/L (135-145); Total Bilirubin 0.8 mg/dl (0.2-1.3); Total Protein 7.4 g/dl (6.3-8.2); eGFR > 60.00
[2024-10-02 21:38] LABS: COVID-19 Antigen Negative (Negative)
[2024-10-02 22:33] LABS: Urine Albumin Trace (Neg - Trace); Urine Bilirubin 1+ (Negative); Urine Character Clear (Clear); Urine Color Yellow; Urine Glucose Negative (Negative); Urine Ketone Negative (Negative); Urine Leukocyte Trace (Negative); Urine Nitrite Negative (Negative); Urine Occult Blood Negative (Negative); Urine Specific Gravity 1.015 (<1.030); Urine Urobilinogen 3+ (Neg - 1+)
[2024-10-02 22:40] LABS: Urine Red Blood Cell None Seen /HPF (0-2); Urine White Cell 0-2 /HPF (0-5)
[2024-10-02] MEDS: ZITHROMAX 500 MG PO (23:05)
== END 2024-10-02 23:55 | disposition home or self-care (01) ==
LOC: EMR 19:20
PROVIDERS: Physician Assistant; EMERGENCY PHYSICIAN Emergency Medicine; FAMILY PHYSICIAN Internal Medicine
DX: B34.9 Viral infection, unspecified (principal); R05.9 Cough, unspecified; E78.00 Pure hypercholesterolemia, unspecified; F41.8 Other specified anxiety disorders; I11.0 Hypertensive heart disease with heart failure; I50.9 Heart failure, unspecified; K21.9 Gastro-esophageal reflux disease without esophagitis; I25.10 Atherosclerotic heart disease of native coronary artery without angina pectoris; I25.2 Old myocardial infarction; J43.9 Emphysema, unspecified; Z79.01 Long term (current) use of anticoagulants; Z82.49 Family history of ischemic heart disease and other diseases of the circulatory system; Z85.828 Personal history of other malignant neoplasm of skin; Z86.718 Personal history of other venous thrombosis and embolism; Z87.442 Personal history of urinary calculi; Z87.891 Personal history of nicotine dependence; Z95.5 Presence of coronary angioplasty implant and graft
CPT/HCPCS: 99283; 96360; 96361; 71046; 80053; 81003; 81015; 83605; 85025; 87502; 87811; 93005

== ENCOUNTER → 2024-12-06 10:17 | Outpatient (REF) | payer MEDICARE, OTHER, SELFPAY ==
[2024-12-06 13:32] LABS: HDL Cholesterol 51 mg/dl; LDL Cholesterol, Calculated 111 mg/dl; Total Cholesterol 189 mg/dl (50-199); Triglyceride 138 mg/dl (10-149); Very Low Density Lipoprotein 27 mg/dl (0-30)
[2024-12-07 11:55] LABS: tTG IgG Antibody 8.2 EU/ml (0-19)
[2024-12-07 15:13] LABS: CD4 % of Cells Analyzed 29 % (32-64); CD4 Absolute Count 642 cells/uL (430-1800)
[2024-12-07 23:30] LABS: IgA 158 mg/dl (70-400)
[2024-12-08 00:12] LABS: Endomysial IgA Antibody Titer <1:10 (<1:10)
[2024-12-08 21:12] LABS: Pancreatic Elastase, Fecal >800 ug/g (>=100)
[2024-12-08 21:13] LABS: Calprotectin, Fecal 134 ug/g (<=49)
== END ==
LOC: REG 10:17
PROVIDERS: ATTENDING PHYSICIAN Internal Medicine; FAMILY PHYSICIAN Internal Medicine; OTHER PHYSICIAN Internal Medicine Cardiovascular Disease; REFERRING PHYSICIAN Student in an Organized Health Care Education/Training Program
DX: R63.4 Abnormal weight loss (principal); R19.5 Other fecal abnormalities; B20 Human immunodeficiency virus [HIV] disease
CPT/HCPCS: 80061; 82653; 82784; 83516; 83993; 86231; 86361; 87328; 87329; 87536

== ENCOUNTER 2025-01-05 15:13 | Emergency (ER) | payer MEDICARE, OTHER, SELFPAY ==
[2025-01-05 15:16] VITALS: BP 113/83
[2025-01-05 15:56] LABS: Hematocrit 36.3 % (39.0-52.0); Hemoglobin 11.3 g/dL (13.0-18.0); Mean Corp Hgb Conc. 31.1 g/dL (33.0-37.0); Mean Corpuscular Hgb 24.7 pg (27.0-31.0); Mean Corpuscular Volume 79.4 fL (80.0-94.0); Platelet Count 270 10^3/uL (130-400); Red Blood Cell Count 4.57 10^6/uL (4.70-6.10); Red Cell Dist. Width 16.4 % (11.5-14.5); White Blood Cell Count 6.6 10^3/uL (4.8-10.8)
[2025-01-05 16:08] LABS: ALT (SGPT) 15 U/L (0-50); AST (SGOT) 25 U/L (17-59); Albumin 3.7 g/dl (3.5-5.0); Alkaline Phosphatase 107 U/L (38-126); Blood Urea Nitrogen 19 mg/dl (9-20); Calcium 9.2 mg/dl (8.4-10.2); Carbon Dioxide 29 mmol/L (22-30); Chloride 105 mmol/L (98-107); Glucose 97 mg/dl (70-99); Lipase 131 U/L (23-300); Potassium 5.3 mmol/L (3.5-5.1); Sodium 137 mmol/L (135-145); Total Bilirubin 0.4 mg/dl (0.2-1.3); Total Protein 7.1 g/dl (6.3-8.2); eGFR > 60.00
[2025-01-05 16:22] LABS: % Basophils 1.1 % (0-2); % Eosinophils 3.8 % (0-6); % Immature Granulocytes 0.2 % (0-0.5); % Lymphocytes 36.6 % (20.5-51.1); % Neutrophils 47.3 % (42.2-75.2); Absolute Basophils 0.1 10^3/uL (0-0.2); Absolute Eosinophils 0.3 10^3/uL (0-0.7); Absolute Lymphocytes 2.4 10^3/uL (1.2-3.4); Absolute Monocytes 0.7 10^3/uL (0.1-0.6); Absolute Neutrophils 3.2 10^3/uL (1.4-6.5); Nucleated Red Blood Cells % 0 % (-)
[2025-01-05 17:00] VITALS: BP 138/96
[2025-01-05 17:01] VITALS: BMI 25.4
[2025-01-05 17:39] LABS: Urine Albumin Negative (Neg - Trace); Urine Bilirubin Negative (Negative); Urine Character Clear (Clear); Urine Color Yellow; Urine Glucose Negative (Negative); Urine Ketone Negative (Negative); Urine Leukocyte Negative (Negative); Urine Nitrite Negative (Negative); Urine Occult Blood Negative (Negative); Urine Urobilinogen Negative (Neg - 1+)
--- NOTE | 2025-01-05 17:46 | ED.GENMED ---
History of Present Illness
General
Chief Complaint: Abdominal Pain
Source: patient
Exam Limitations: none
Time Seen by Provider: 01/05/25 16:46
Nursing documentation reviewed up to this point in time: agreed with
History of Present Illness
History of Present Illness:
PT IS A 59 Y/O M
h/o HIV + viral load 'almost undetectable' cd4 600s
here with LLQ pain since midnight waxing and waning
pt has chroinc foul smelling loose stools, thought to be related to IBS or some bacterial overgrowth; followe dby dr. lopez, GI and due for colonoscopy on 01/17
says becuase of his chroin cidarrhea, he wanted to use imodium so he could go out
pt syas he took 2 immodium, did 2 water enemas and took 2 gasex at 9 pm last night before the pain started
he has not had fever, nausea, vomitig
pain is worse with changing position
no rectal bleeding
no dysuria, hematuria
Past History
Past History
ED Past Medical History: CAD, Cancer (Skin CA), CHF, COPD (Emphysema), GERD, HTN, Hypercholesterolemia, [place] (X 3), Psychiatric (Anxiety, Depression, Panic disorder) and Other (HIV, DVT, bilateral iliac aneurysm, chronic back pain, Duodenal hernia,
PNA, PE, Renal calculus, Pilonidal cyst)
ED Past Surgical History: Cardiac (Stents X3), Orthopedic (Lumbar discectomy) and Other (Hemorrhoidectomy)
Social History
Tobacco: Former smoker
Alcohol: Occasional (3 bottles in one week)
Drug: Marijuana
Personal: Other (Seperated)
Living: with roommate
Employment: Disabled
Family History
Family History: CAD
Review of Systems
Review of Systems
Allergies reviewed?: Yes
All Other Systems: Not applicable
Phy Exam
Physical Exam
Physical Exam:
GENERAL: Alert , in no apparent distress
EYE: pupils equal and reactive
NECK: Supple
ENT: o/p clr, mmm.
CARDIAC: Regular rate and rhythm .
LUNGS: Clear breath sounds bilaterally, no acute respiratory distress, no wheezes/rales/rhonchi
ABDOMEN: Soft, mild left lower quadrant tenderness, no r/g, no cvat, normal bowel sounds
NEUROLOGICAL: Alert and oriented, no focal neuro deficits
SKIN: Warm and dry, skin intact.
MUSCULOSKELETAL: No edema, well perfused. neg dimitris's sign
PSYCH: Normal and appropriate interaction.
Course
Orders/Labs/Results
Orders:
Orders
01/05/25 15:38
Complete Blood Count/With Diff Urgent
Comprehensive Metabolic Panel Urgent
Lipase Urgent
01/05/25 17:09
Urinalysis Reflex To Culture Urgent
Date Specimen was Collected: 01/05/25
Time Specimen was Collected: 17:08
01/05/25 17:25
CT Abd/Pel (IV only)-DH only Urgent
Comment:
Reason For Exam: LLQ pain, used imodium; chronic bowel prob; HIV
01/05/25 17:29
Morphine Sulfate 4 mg IV NOW STA
01/05/25 19:32
0.9% Sodium Chloride 500 ml [Nss] 500 ml IV BOLUS
Ketorolac [Toradol] 15 mg IV NOW STA
Pantoprazole [Protonix IV] 40 mg IV NOW STA
Abnormal Lab Results
01/05/25
15:38
RBC 4.57 L 10^6/uL
(4.70-6.10)
Hgb 11.3 L g/dL
(13.0-18.0)
Hct 36.3 L %
(39.0-52.0)
MCV 79.4 L fL
(80.0-94.0)
MCH 24.7 L pg
(27.0-31.0)
MCHC 31.1 L g/dL
(33.0-37.0)
RDW 16.4 H %
(11.5-14.5)
Absolute Monos (auto) 0.7 H 10^3/uL
(0.1-0.6)
Monocytes % 11.0 H %
(1.7-9.3)
Potassium 5.3 H mmol/L
(3.5-5.1)
01/05/25 15:38
01/05/25 15:38
Vital Signs
Initial and Last Documented VS:
Initial Vital Signs
Temp Pulse Resp BP Pulse Ox
36.8 C 60 18 113/83 99
01/05/25 15:16 01/05/25 15:16 01/05/25 15:16 01/05/25 15:16 01/05/25 15:16
Last Documented Vital Signs
Temp Pulse Resp BP Pulse Ox
36.8 C 60 18 143/89 97
01/05/25 15:16 01/05/25 15:16 01/05/25 15:16 01/05/25 21:00 01/05/25 21:00
MDM/Problems Addressed
Differential Diagnosis Includes:
DIVERTICULITIS, COLITIS, STERCORAL COLITIS, FECAL IMPACTION
MDM/Problems Addressed:
lorri casanova 59 y/o M hiv on meds, cd4 600s, VL low detectable
chroinc loose bms, foul smelling x 6 mo; dr. lopez saw him and scheduled him for colonoscopy 01/17
has chroincally had bowel issues before, IBS but no inflammatory conditions
yesterday he wanted to go out at night, and didn' twant to have his chronic diarrhea so he did 2 water enemas, took 4 mg immodium and 2 gasex and 3 hours later developed LLQ pain
he is afebrile there, mild tender LLQ, no guarding and wbc 6.[address] shows a mild colitis in LLQ (mild circumferential wall thickening of enter L colon and sigmoid colon) ;no obvious diverticulitis
no soigns of fecal ipmaction on ct scan and no rectal pressure, rectal not performed
pt initially didn't have relief of pain with morphine
d/w ed attending and GI attending
it seems rather quick to develop colitis from just overnight
i suspect his pain is more related to the meds he used
dr. hodges from GI agreed, that often times colitis on ct without oral contrast is over-called; so unless we were suspcisiou for diverticulitis, probably ok to hold on abx at this point
i instead gave him a dose of toradol and protonix and fluids and he is feeling much better;
ok to go home
bland diet and bentyl for pain
fulids
and hold scripts levaquin (pt has tolerated before despite other FQ allergies) and flagyl
*Critical Care Note
Total Time (30-74mins, 75-104mins- exclusive of procedures): Not Applicable
ED Attending Note
-
Portions of this chart may have been created with voice recognition software.� Occasional wrong word or��sound alike� substitutions may have occurred due to the inherent limitations of voice recognition software.
Discharge Plan
Departure
Patient Disposition: Home (Routine Discharge)
Date of Disposition: 01/05/25
Time of Disposition: 21:13
Patient with high blood pressure during this ER visit?: No
Condition: Fair
Discharge Problem:
Abdominal pain
Instructions: Abdominal Pain
Prescriptions:
New
dicyclomine 20 mg tablet
20 mg PO TID PRN (Reason: ABDOMINAL PAIN) Qty: 10 0RF
metronidazole 500 mg tablet
500 mg PO TID Qty: 21 0RF
levofloxacin 500 mg tablet
500 mg PO DAILY 5 Days Qty: 5 0RF
No Action
dexlansoprazole [Dexilant] 30 MG capsule,biphase delayed releas
60 mg PO DAILY
clonazepam 0.5 MG tablet
1.5 mg PO HS
clonazepam 0.5 MG tablet
0.5 mg PO DAILY
Eliquis 5 MG tablet
5 mg PO BID
loratadine [Claritin] 10 mg Tablet
10 mg PO HS
valsartan 160 mg Tablet
160 mg PO DAILY
Biktarvy 50-200-25 mg Tablet
1 tab PO HS
fluticasone propionate [Flonase] 50 mcg/actuation [place],Suspension
2 spray INTRANASAL DAILY
citalopram [Celexa] 40 mg Tablet
20 mg PO HS
hydrocodone-acetaminophen 5-325 mg Tablet
1 tab PO Q6HPRN PRN (Reason: severe pain)
Trelegy Ellipta 100-62.5-25 mcg Blister With Device
1 inh INHALATION R DAILY
loperamide 2 mg Tablet
2 mg PO DAILYPRN PRN (Reason: diarrhea)
simethicone [Gas-X Extra Strength] 125 mg Capsule
250 mg PO DAILYPRN PRN (Reason: gas pains)
Fleet Enema 19-7 gram/118 mL Enema
236 ml ME DAILYPRN PRN (Reason: constipaiton)
Referrals:
Loy Castillo MD [Family Provider] -
Activity Restrictions/Additional Instructions:
WE THINK YOUR PAIN IS MORE DUE TO THE SIDE EFFECTS OF THE MEDICATOINS RATHER THAN MILD COLITIS ON YOUR CAT SCAN
THIS CAN SOMETIMES BE AN 'OVER READ' ON THE CAT SCAN WHEN YOU DON'T HAVE ORAL CONTRAST
SO FOR NOW TRY BLAND DIET
DRINK FLUIDS
TAKE BENTYL 20 MG 2-3 TIMES A DAY OR TYLENOL FOR PAIN
IF YOU CONTINUE WITH PAIN, OR START WITH DIARRHEA, YOU CAN TRY LEVAQUIN ONCE A DAY FOR 5 DAYS AND FLAGYL 3 TIMES A DAY FOR 7 DAYS TO TREAT COLITIS.
IF YOU HAVE SIGNIFICANT PAIN, BLOODY DIARRHEA, FEVER, CHILLS ETC THEN RETURN TO THE ER
OTHERWISE SEE YOUR GI DOCTOR.
Interventions
Interventions:
*Risk Screen - Suicide Last Done: 01/05/25 15:16
*General Assessment Last Done: 01/05/25 15:16
*Neglect/Abuse Screening Last Done: 01/05/25 15:16
ED- Fall Risk Assessment Last Done: 01/05/25 17:03
*ED COVID-19 Vaccine History Last Done: 01/05/25 17:02
FB-Nxccja-Khacvcsezd Assessment Last Done: 01/05/25 17:03
Discharge Date and Time
Print Language: [place]
[2025-01-05] MEDS: MORPHINE SULFATE 4 MG IV (18:02)
[2025-01-05] MEDS: NSS 500 IV (20:03)
[2025-01-05] MEDS: TORADOL 15 MG IV (20:04)
[2025-01-05] MEDS: PROTONIX IV 40 MG IV (20:06)
[2025-01-05 21:00] VITALS: BP 143/89
== END 2025-01-05 21:39 | disposition home or self-care (01) ==
LOC: EMR 15:13
PROVIDERS: Emergency Medicine; Physician Assistant; EMERGENCY PHYSICIAN Emergency Medicine; FAMILY PHYSICIAN Internal Medicine
DX: K52.9 Noninfective gastroenteritis and colitis, unspecified (principal); R10.32 Left lower quadrant pain; I25.10 Atherosclerotic heart disease of native coronary artery without angina pectoris; I11.0 Hypertensive heart disease with heart failure; I50.9 Heart failure, unspecified; I25.2 Old myocardial infarction; E78.00 Pure hypercholesterolemia, unspecified; J43.9 Emphysema, unspecified; K21.9 Gastro-esophageal reflux disease without esophagitis; Z21 Asymptomatic human immunodeficiency virus [HIV] infection status; Z85.828 Personal history of other malignant neoplasm of skin; Z86.718 Personal history of other venous thrombosis and embolism; Z87.891 Personal history of nicotine dependence; Z95.5 Presence of coronary angioplasty implant and graft; Z87.442 Personal history of urinary calculi
CPT/HCPCS: 99284; 96374; 96375; 96361; 74177; 80053; 81003; 83690; 85025; Q9967

== ENCOUNTER 2025-03-27 06:30 | Day surgery (SDC) | payer MEDICARE, OTHER, SELFPAY | END 2025-03-27 11:39 | disposition home or self-care (01) | LOC: GI 06:30 | PROVIDERS: ATTENDING PHYSICIAN Internal Medicine | DX: Z12.11 Encounter for screening for malignant neoplasm of colon (principal); K64.9 Unspecified hemorrhoids; K57.30 Diverticulosis of large intestine without perforation or abscess without bleeding; D12.2 Benign neoplasm of ascending colon; D12.3 Benign neoplasm of transverse colon; Z86.0100 Personal history of colon polyps, unspecified | CPT/HCPCS: 45385; 45380; 88305 ==

== ENCOUNTER → 2025-05-02 12:20 | Outpatient (REF) | payer MEDICARE, OTHER, SELFPAY ==
[2025-05-02 15:37] LABS: Urine Albumin Negative (Neg - Trace); Urine Bilirubin Negative (Negative); Urine Character Clear (Clear); Urine Color Yellow; Urine Glucose Negative (Negative); Urine Ketone Negative (Negative); Urine Leukocyte Negative (Negative); Urine Nitrite Negative (Negative); Urine Occult Blood Negative (Negative); Urine Urobilinogen Negative (Neg - 1+)
[2025-05-02 15:37] LABS: % Basophils 1.4 % (0-2); % Eosinophils 5.5 % (0-6); % Immature Granulocytes 0.2 % (0-0.5); % Lymphocytes 47.6 % (20.5-51.1); % Neutrophils 33.3 % (42.2-75.2); Absolute Basophils 0.1 10^3/uL (0-0.2); Absolute Eosinophils 0.4 10^3/uL (0-0.7); Absolute Lymphocytes 3.1 10^3/uL (1.2-3.4); Absolute Monocytes 0.8 10^3/uL (0.1-0.6); Absolute Neutrophils 2.2 10^3/uL (1.4-6.5); Mean Corp Hgb Conc. 32.4 g/dL (33.0-37.0); Mean Corpuscular Hgb 25.4 pg (27.0-31.0); Mean Corpuscular Volume 78.5 fL (80.0-94.0); Mean Platelet Volume 10.5 fL (7.4-10.4); Nucleated Red Blood Cells % 0 % (-); Platelet Count 228 10^3/uL (130-400); Red Blood Cell Count 4.33 10^6/uL (4.70-6.10); White Blood Cell Count 6.6 10^3/uL (4.8-10.8)
[2025-05-02 15:46] LABS: ALT (SGPT) 18 U/L (0-50); AST (SGOT) 24 U/L (17-59); Albumin 4.1 g/dl (3.5-5.0); Alkaline Phosphatase 129 U/L (38-126); Blood Urea Nitrogen 15 mg/dl (9-20); Calcium 9.1 mg/dl (8.4-10.2); Carbon Dioxide 23 mmol/L (22-30); Chloride 108 mmol/L (98-107); Glucose 99 mg/dl (70-99); HDL Cholesterol 41 mg/dl; LDL Cholesterol, Calculated 89 mg/dl; Magnesium 1.9 mg/dl (1.6-2.3); Potassium 4.5 mmol/L (3.5-5.1); Sodium 140 mmol/L (135-145); Total Bilirubin 0.4 mg/dl (0.2-1.3); Total Cholesterol 186 mg/dl (50-199); Total Protein 7.1 g/dl (6.3-8.2); Triglyceride 282 mg/dl (10-149); Very Low Density Lipoprotein 56 mg/dl (0-30); eGFR > 60.00
[2025-05-02 16:01] LABS: Free T4 0.95 ng/dl (0.78-2.19)
[2025-05-02 16:15] LABS: PSA, Total - Screen 1.08 ng/ml (0.0-4.0); TSH 4.84 uIU/ml (0.47-4.68)
== END ==
LOC: HWLAB 12:20
PROVIDERS: ATTENDING PHYSICIAN Internal Medicine; FAMILY PHYSICIAN Internal Medicine
DX: G25.81 Restless legs syndrome (principal); I10 Essential (primary) hypertension; F41.9 Anxiety disorder, unspecified; I25.10 Atherosclerotic heart disease of native coronary artery without angina pectoris; I25.83 Coronary atherosclerosis due to lipid rich plaque; E78.00 Pure hypercholesterolemia, unspecified; J43.9 Emphysema, unspecified
CPT/HCPCS: 36415; 80053; 80061; 81003; 83735; 84439; 84443; 85025; G0103

== ENCOUNTER → 2025-06-13 14:47 | Outpatient (REF) | payer MEDICARE, OTHER, SELFPAY | LOC: HWRAD 14:47 | PROVIDERS: ATTENDING PHYSICIAN Nurse Practitioner Family; FAMILY PHYSICIAN Internal Medicine | DX: Z87.891 Personal history of nicotine dependence (principal) | CPT/HCPCS: 71271 ==

== ENCOUNTER → 2025-06-16 14:39 | Outpatient (REF) | payer MEDICARE, OTHER, SELFPAY ==
[2025-06-16 15:59] LABS: Hematocrit 38.9 % (39.0-52.0); Hemoglobin 12.2 g/dL (13.0-18.0); Mean Corp Hgb Conc. 31.4 g/dL (33.0-37.0); Mean Corpuscular Volume 79.9 fL (80.0-94.0); Nucleated Red Blood Cells % 0 % (-); Platelet Count 219 10^3/uL (130-400); Red Cell Dist. Width 17.8 % (11.5-14.5)
[2025-06-16 16:17] LABS: ALT (SGPT) 19 U/L (0-50); AST (SGOT) 27 U/L (17-59); Albumin 4.3 g/dl (3.5-5.0); Alkaline Phosphatase 118 U/L (38-126); Blood Urea Nitrogen 14 mg/dl (9-20); Calcium 9.5 mg/dl (8.4-10.2); Carbon Dioxide 28 mmol/L (22-30); Chloride 107 mmol/L (98-107); Glucose 95 mg/dl (70-99); Potassium 5.0 mmol/L (3.5-5.1); Sodium 140 mmol/L (135-145); Total Protein 7.4 g/dl (6.3-8.2); eGFR > 60.00
[2025-06-19 08:01] LABS: CD4 % of Cells Analyzed 25 % (32-64); CD4 Absolute Count 597 cells/uL (430-1800)
[2025-06-20 09:43] LABS: HIV-1 Quan NAAT Interpretation Detected (Not Detected); HIV-1 Quant NAAT (copies/ml) 22 cpy/mL; HIV-1 Quant NAAT (log copy/mL) 1.33 log cpy/mL
== END ==
LOC: REG 14:39
PROVIDERS: ATTENDING PHYSICIAN Internal Medicine; FAMILY PHYSICIAN Internal Medicine; OTHER PHYSICIAN Student in an Organized Health Care Education/Training Program
DX: R50.9 Fever, unspecified (principal); D89.89 Other specified disorders involving the immune mechanism, not elsewhere classified
CPT/HCPCS: 36415; 80053; 85025; 86361; 87040; 87536

== ENCOUNTER → 2025-07-12 16:12 | Outpatient (REF) | payer MEDICARE, OTHER, SELFPAY | LOC: RCS 16:12 | PROVIDERS: ATTENDING PHYSICIAN Internal Medicine Critical Care Medicine; FAMILY PHYSICIAN Internal Medicine | DX: J44.9 Chronic obstructive pulmonary disease, unspecified (principal) | CPT/HCPCS: 93005 ==

== ENCOUNTER 2025-07-15 14:46 | Emergency (ER) | payer MEDICARE, OTHER, SELFPAY ==
[2025-07-15 14:50] VITALS: BP 100/71
[2025-07-15 15:03] LABS: Hematocrit 39.2 % (39.0-52.0); Hemoglobin 12.5 g/dL (13.0-18.0); Mean Corp Hgb Conc. 31.9 g/dL (33.0-37.0); Mean Corpuscular Volume 77.5 fL (80.0-94.0); Nucleated Red Blood Cells % 0 % (-); Platelet Count 233 10^3/uL (130-400); Red Cell Dist. Width 17.2 % (11.5-14.5)
[2025-07-15 15:13] LABS: INR 1.12; PT 14.7 Sec (11.4-14.6)
[2025-07-15 15:14] LABS: APTT 29.6 Sec (23.4-35.0)
[2025-07-15 15:26] LABS: ALT (SGPT) 21 U/L (0-50); AST (SGOT) 29 U/L (17-59); Albumin 4.4 g/dl (3.5-5.0); Alkaline Phosphatase 105 U/L (38-126); Blood Urea Nitrogen 15 mg/dl (9-20); Calcium 8.6 mg/dl (8.4-10.2); Carbon Dioxide 22 mmol/L (22-30); Chloride 108 mmol/L (98-107); Glucose 119 mg/dl (70-99); Potassium 4.6 mmol/L (3.5-5.1); Sodium 137 mmol/L (135-145); Total Protein 7.6 g/dl (6.3-8.2); eGFR > 60.00
[2025-07-15 15:27] LABS: Troponin I < 0.012 ng/ml
[2025-07-15 17:51] VITALS: BP 122/90
[2025-07-15 19:00] VITALS: BP 130/82
--- NOTE | 2025-07-15 19:50 | ED.GENMED ---
History of Present Illness
General
Chief Complaint: Dizziness
Source: patient
Time Seen by Provider: 07/15/25 19:32
History of Present Illness
History of Present Illness:
60-year-old male presents to the emergency room complaining of feeling fatigued and dizzy over the past few days. He feels like he is sleeping more than normal. No fever or chills. No nausea vomiting or diarrhea. He describes his dizziness is
more of a lightheaded feeling and denies any sense of movement or spinning. He has headache from time to time but no current headache. No recent trauma. Patient had been prescribed Synthroid by his primary doctor which she took for couple weeks
and then stopped.
Past History
Past History
ED Past Medical History: CAD, Cancer (Skin CA), CHF, COPD (Emphysema), GERD, HTN, Hypercholesterolemia, [place] (X 3), Psychiatric (Anxiety, Depression, Panic disorder) and Other (HIV, DVT, bilateral iliac aneurysm, chronic back pain, Duodenal hernia,
PNA, PE, Renal calculus, Pilonidal cyst)
ED Past Surgical History: Cardiac (Stents X3), Orthopedic (Lumbar discectomy) and Other (Hemorrhoidectomy)
Social History
Tobacco: Former smoker
Alcohol: Occasional (3 bottles in one week)
Drug: Marijuana
Personal: Other (Seperated)
Living: with roommate
Employment: Disabled
Family History
Family History: CAD
Phy Exam
Physical Exam
Physical Exam:
General: Awake, Alert, Oriented X3. No acute distress.
Vitals: unremarkable
Head: Atraumatic
Eyes: Pupils equal, EOMI
Throat: Airway intact, no exudates
Neck: Trachea midline
Lungs: Clear and equal b/l
Heart: Regular rate, no murmurs
Abd: Soft, Nontender, No pulsatile mass
Neuro: Cranial nerves intact, muscle strength equal bilaterally, cerebellar exam normal.
Skin: Warm, dry, no rash
Extremities: pulses equal b/l, no edema
Course
Orders/Labs/Results
Orders:
Orders
07/15/25 14:53
CT Head W/o Iv Contrast Urgent
Comment:
Reason For Exam: Headache, Confusion, Dizzy
07/15/25 14:57
Complete Blood Count/With Diff Urgent
Comprehensive Metabolic Panel Urgent
PTT Urgent
Prothrombin Time Urgent
Troponin I Urgent
07/15/25 19:49
0.9% Sodium Chloride 500 ml [Nss] 500 ml IV BOLUS
Abnormal Lab Results
07/15/25
14:57
Hgb 12.5 L g/dL
(13.0-18.0)
MCV 77.5 L fL
(80.0-94.0)
MCH 24.7 L pg
(27.0-31.0)
MCHC 31.9 L g/dL
(33.0-37.0)
RDW 17.2 H %
(11.5-14.5)
PT 14.7 H Sec
(11.4-14.6)
Chloride 108 H mmol/L
(98-107)
Glucose 119 H mg/dl
(70-99)
07/15/25 14:57
07/15/25 14:57
Vital Signs
Initial and Last Documented VS:
Initial Vital Signs
Temp Pulse Resp BP Pulse Ox
98.8 F 83 18 100/71 96
07/15/25 14:50 07/15/25 14:50 07/15/25 14:50 07/15/25 14:50 07/15/25 14:50
Last Documented Vital Signs
Temp Pulse Resp BP Pulse Ox
97.6 F 64 19 134/86 96
07/15/25 18:52 07/15/25 21:00 07/15/25 21:00 07/15/25 21:00 07/15/25 19:52
MDM/Problems Addressed
Differential Diagnosis Includes:
Dehydration, labyrinthitis, BPPV,
MDM/Problems Addressed:
Patient presents with multiple symptoms. He denies a sense of movement and seems more like lightheadedness. Vital signs here are acceptable. Labs show no emergent abnormalities. Patient feeling better after 500 cc bolus of saline. He ambulated
without any ataxia or difficulty. Stable for discharge and outpatient follow-up recommend he discuss the fact that he discontinued his Synthroid with his prescribing doctor.
*Pulse Oximetry
SaO2: 96
Oxygen Mode of Delivery: Room air
Patient hypoxic: no
*[employer] Interpretation
Rate: normal
Interpretation: normal
Rhythm: sinus
*Critical Care Note
Total Time (30-74mins, 75-104mins- exclusive of procedures): Not Applicable
ED Attending Note
-
Portions of this chart may have been created with voice recognition software.� Occasional wrong word or��sound alike� substitutions may have occurred due to the inherent limitations of voice recognition software.
Discharge Plan
Departure
Patient Disposition: Home (Routine Discharge)
Date of Disposition: 07/15/25
Time of Disposition: 22:01
Patient with high blood pressure during this ER visit?: No
Discharge Problem:
Dizziness
Instructions: Dizziness, Nonvertigo, (DC)
Prescriptions:
No Action
dexlansoprazole [Dexilant] 30 MG capsule,biphase delayed releas
60 mg PO DAILY
clonazepam 0.5 MG tablet
1.5 mg PO HS
Rx Instructions:
PT. says he takes 2mg.
Eliquis 5 MG tablet
5 mg PO BID
valsartan 160 mg Tablet
160 mg PO DAILY
Biktarvy 50-200-25 mg Tablet
1 tab PO HS
fluticasone propionate [Flonase] 50 mcg/actuation [place],Suspension
2 spray INTRANASAL DAILY
citalopram [Celexa] 40 mg Tablet
20 mg PO HS
hydrocodone-acetaminophen 5-325 mg Tablet
1 tab PO Q6HPRN PRN (Reason: severe pain)
Trelegy Ellipta 100-62.5-25 mcg Blister With Device
1 inh INHALATION R DAILY
simethicone [Gas-X Extra Strength] 125 mg Capsule
250 mg PO DAILYPRN PRN (Reason: gas pains)
Referrals:
[facility], [Other]
Kurtis Churchill MD [Family Provider, Internal Medicine]
Activity Restrictions/Additional Instructions:
Please follow-up with your primary doctor.
Interventions
Interventions:
*Risk Screen - Suicide Last Done: 07/15/25 17:48
*General Assessment Last Done: 07/15/25 17:48
*Neglect/Abuse Screening Last Done: 07/15/25 17:48
*ED- Fall Risk Assessment Last Done: 07/15/25 17:48
*ED COVID-19 Vaccine History Last Done: 07/15/25 17:48
ED- Neurological Assessment Last Done: 07/15/25 20:00
ED- Cardiac Assessment Last Done: 07/15/25 20:00
ED Swallowing Screen Last Done: 07/15/25 17:56
Discharge Date and Time
Print Language: POLISH
[2025-07-15] MEDS: NSS 500 IV (19:57)
[2025-07-15 20:00] VITALS: BP 129/89
[2025-07-15 21:00] VITALS: BP 134/86
== END 2025-07-15 22:11 | disposition home or self-care (01) ==
LOC: EMR 14:46
PROVIDERS: Emergency Medicine; EMERGENCY PHYSICIAN Emergency Medicine; FAMILY PHYSICIAN Internal Medicine
DX: R42 Dizziness and giddiness (principal); I25.10 Atherosclerotic heart disease of native coronary artery without angina pectoris; I11.0 Hypertensive heart disease with heart failure; I50.9 Heart failure, unspecified; E78.00 Pure hypercholesterolemia, unspecified; I25.2 Old myocardial infarction; J44.9 Chronic obstructive pulmonary disease, unspecified; J43.9 Emphysema, unspecified; I72.3 Aneurysm of iliac artery; Z21 Asymptomatic human immunodeficiency virus [HIV] infection status; F41.9 Anxiety disorder, unspecified; F32.A Depression, unspecified; F41.0 Panic disorder [episodic paroxysmal anxiety]; M54.9 Dorsalgia, unspecified; G89.29 Other chronic pain; Z79.01 Long term (current) use of anticoagulants; Z86.718 Personal history of other venous thrombosis and embolism; Z95.5 Presence of coronary angioplasty implant and graft; Z87.891 Personal history of nicotine dependence; T38.1X6A Underdosing of thyroid hormones and substitutes, initial encounter; Z91.128 Patient's intentional underdosing of medication regimen for other reason; Z85.828 Personal history of other malignant neoplasm of skin; Z82.49 Family history of ischemic heart disease and other diseases of the circulatory system
CPT/HCPCS: 99284; 96360; 70450; 80053; 84484; 85025; 85610; 85730

== ENCOUNTER 2025-08-29 16:15 | Outpatient (RCR) | payer MEDICARE, OTHER, SELFPAY | END 2025-08-29 23:59 | disposition home or self-care (01) | LOC: PURB 16:15 | PROVIDERS: ATTENDING PHYSICIAN Internal Medicine Critical Care Medicine; FAMILY PHYSICIAN Internal Medicine | DX: J44.9 Chronic obstructive pulmonary disease, unspecified (principal) | CPT/HCPCS: 94625; G0237 ==

== ENCOUNTER 2025-11-15 10:49 | Inpatient (IN) | payer MEDICARE, OTHER, SELFPAY ==
[2025-11-14 22:33] VITALS: BP 97/66
[2025-11-14 22:56] LABS: Hematocrit 38.7 % (39.0-52.0); Hemoglobin 12.5 g/dL (13.0-18.0); Mean Corp Hgb Conc. 32.3 g/dL (33.0-37.0); Mean Corpuscular Volume 76.3 fL (80.0-94.0); Nucleated Red Blood Cells % 0 % (-); Platelet Count 183 10^3/uL (130-400); Red Cell Dist. Width 16.6 % (11.5-14.5)
[2025-11-14 23:07] LABS: COVID-19 Antigen Negative (Negative)
[2025-11-14 23:21] LABS: ALT (SGPT) 21 U/L (0-50); AST (SGOT) 33 U/L (17-59); Albumin 3.9 g/dl (3.5-5.0); Alkaline Phosphatase 89 U/L (38-126); Blood Urea Nitrogen 11 mg/dl (9-20); Calcium 8.4 mg/dl (8.4-10.2); Carbon Dioxide 21 mmol/L (22-30); Chloride 107 mmol/L (98-107); Glucose 99 mg/dl (70-99); Potassium 4.4 mmol/L (3.5-5.1); Sodium 137 mmol/L (135-145); Total Protein 7.0 g/dl (6.3-8.2); eGFR > 60.00
[2025-11-15] VITALS (12 sets, daily range): BP systolic 114–149; BP diastolic 56–77; PULSE 93; O2SAT 95; BMI 28.1; BMI 27.3
[2025-11-15] MEDS: REGLAN 10 MG IV (05:09)
[2025-11-15] MEDS: NSS 1000 IV ×2 (05:09→16:43)
[2025-11-15] MEDS: TYLENOL 1000 MG PO ×2 (05:10→09:25)
--- NOTE | 2025-11-15 06:30 | ED.GENMED ---
History of Present Illness
General
Chief Complaint: Fever
Source: patient
Time Seen by Provider: 11/15/25 03:41
Nursing documentation reviewed up to this point in time: agreed with
History of Present Illness
History of Present Illness:
60-year-old male presents to the Emergency Department for fever, weakness, and hypoxia. Patient has been complaining of fever weakness that has been progressively worsening for the last week. Patient states that while he lives alone, he lives on
the first floor without any steps. He has been able to tolerate living in his apartment during this time up until recently. He states that he cannot make it more several feet down the aponte. Patient does have a history of HIV. Reports COPD, is a
former smoker
Past History
Past History
ED Past Medical History: CAD, Cancer (Skin CA), CHF, COPD (Emphysema), GERD, HTN, Hypercholesterolemia, [place] (X 3), Psychiatric (Anxiety, Depression, Panic disorder) and Other (HIV, DVT, bilateral iliac aneurysm, chronic back pain, Duodenal hernia,
PNA, PE, Renal calculus, Pilonidal cyst)
ED Past Surgical History: Cardiac (Stents X3), Orthopedic (Lumbar discectomy) and Other (Hemorrhoidectomy)
Social History
Tobacco: Former smoker
Alcohol: Occasional (3 bottles in one week)
Drug: Marijuana
Personal: Other (Seperated)
Living: with roommate
Employment: Disabled
Family History
Family History: CAD
Review of Systems
Review of Systems
Allergies reviewed?: Yes
All Other Systems: ROS reviewed and negative except as documented in HPI and ROS
Constitutional: Reports sleep disturbance
Respiratory: Reports cough and trouble breathing
Neurological: Reports dizzy and weakness
Psychiatric: Reports anxiety
Phy Exam
General Physical Exam
General Presentation: mild distress
General age: appears stated age
General Skin: warm and dry
General Habitus: elderly
General Mental: alert
General Hydration: appears well hydrated
Pulmonary Exam
Pulmonary Exam: decreased breath sounds
Cough: non productive cough
Respirations: mild increase in effort
Breath Sounds: Wheeze: generalized
Musculoskeletal Exam
Musculoskeletal Exam: full ROM
Course
Orders/Labs/Results
Orders:
Orders
11/14/25 22:44
COVID-19 Antigen Urgent
Source: Nasal Swab
Complete Blood Count/With Diff Urgent
Comprehensive Metabolic Panel Urgent
Influenza A+B Rapid Molecular Urgent
ROSARIO Source: Nasal Swab
Specimen Description:
11/15/25 04:53
0.9% Sodium Chloride 1000 ml [Nss] 1,000 ml IV BOLUS
Metoclopramide [Reglan] 10 mg IV NOW STA
11/15/25 05:08
Acetaminophen [Tylenol] 1,000 mg .ROUTE .STK-MED ONE
11/15/25 05:10
Acetaminophen [Tylenol] 1,000 mg PO NOW STA
11/15/25 05:46
Chest [CR Chest - 2 Views ] Urgent
Comment:
Reason For Exam: GUAMAN
11/15/25 06:35
Ipratropium/Albuterol Sulfate [Duoneb] 3 ml INH R NOW ONE
11/15/25 06:44
Electrocardiogram (*1) Urgent
Reason for Study: Shortness of Breath
EKG- Treatment ONCE
Abnormal Lab Results
11/14/25
22:44
WBC 4.3 L 10^3/uL
(4.8-10.8)
Hgb 12.5 L g/dL
(13.0-18.0)
Hct 38.7 L %
(39.0-52.0)
MCV 76.3 L fL
(80.0-94.0)
MCH 24.7 L pg
(27.0-31.0)
MCHC 32.3 L g/dL
(33.0-37.0)
RDW 16.6 H %
(11.5-14.5)
Neutrophils % 37.7 L %
(42.2-75.2)
Monocytes % 12.9 H %
(1.7-9.3)
Carbon Dioxide 21 L mmol/L
(22-30)
11/14/25 22:44
11/14/25 22:44
Vital Signs
Initial and Last Documented VS:
Initial Vital Signs
Temp Pulse Resp BP Pulse Ox
99.4 F 77 20 97/66 94
11/14/25 22:33 11/14/25 22:33 11/14/25 22:33 11/14/25 22:33 11/14/25 22:33
Last Documented Vital Signs
Temp Pulse Resp BP Pulse Ox
101.8 F H 91 27 131/70 92
11/15/25 06:22 11/15/25 06:00 11/15/25 06:00 11/15/25 06:00 11/15/25 06:35
*Radiology
Radiology exam reviewed: radiology read reviewed
*Pulse Oximetry
SaO2: 92
Nasal Cannula flow liters per minute: 2
Oxygen Mode of Delivery: Room air
Patient hypoxic: no
*Critical Care Note
Total Time (30-74mins, 75-104mins- exclusive of procedures): Not Applicable
ED Attending Note
-
Portions of this chart may have been created with voice recognition software.� Occasional wrong word or��sound alike� substitutions may have occurred due to the inherent limitations of voice recognition software.
Discharge Plan
Departure
Patient Disposition: Admit
Date of Disposition: 11/15/25
Time of Disposition: 06:46
Admit to: Telemetry
Presentation/result/management discussed w/ accepting MD/DO: Hospitalist
Condition: Fair
Discharge Problem:
Influenza A, Acute respiratory failure with hypoxia, HIV positive, COPD (chronic obstructive pulmonary disease), Fever
Prescriptions:
No Action
dexlansoprazole [Dexilant] 30 MG capsule,biphase delayed releas
60 mg PO DAILY
clonazepam 0.5 MG tablet
1.5 mg PO HS
Rx Instructions:
PT. says he takes 2mg.
Eliquis 5 MG tablet
5 mg PO BID
valsartan 160 mg Tablet
160 mg PO DAILY
Biktarvy 50-200-25 mg Tablet
1 tab PO HS
fluticasone propionate [Flonase] 50 mcg/actuation [place],Suspension
2 spray INTRANASAL DAILY
citalopram [Celexa] 40 mg Tablet
20 mg PO HS
hydrocodone-acetaminophen 5-325 mg Tablet
1 tab PO Q6HPRN PRN (Reason: severe pain)
Trelegy Ellipta 100-62.5-25 mcg Blister With Device
1 inh INHALATION R DAILY
simethicone [Gas-X Extra Strength] 125 mg Capsule
250 mg PO DAILYPRN PRN (Reason: gas pains)
Referrals:
Loy Castillo MD [Family Provider, Internal Medicine]
Interventions
Interventions:
*General Assessment Last Done: 11/14/25 22:33
*Neglect/Abuse Screening Last Done: 11/14/25 22:33
*ED COVID-19 Vaccine History Last Done: 11/14/25 22:33
*ED Influenza Vaccine History Last Done: 11/14/25 22:33
[facility] Risk Assessment Tool Last Done: 11/15/25 03:05
*Risk Screen - Suicide (C-SSRS) Last Done: 11/14/25 22:33
ED- Neurological Assessment Last Done: 11/15/25 03:04
ED-Skin Assessment Last Done: 11/15/25 03:04
Discharge Date and Time
Print Language: PAKISTANI
[2025-11-15] MEDS: DUONEB 3 ML INH (06:39)
--- NOTE | 2025-11-15 08:21 | EDRN ---
Patient temp is 103 oral, spoke with ER doctor Alison and obtained orders for fever management.
[2025-11-15] MEDS: TORADOL 15 MG IV (08:38)
--- NOTE | 2025-11-15 09:05 | HPS.HSE ---
Addendum entered and electronically signed by Mike Marcelino MD 11/16/25 13:23:
Acute hypoxemic respiratory failure secondary to influenza A and COPD
Started on Tamiflu per ID
Continue prednisone x 5 days
Continue nebulizers
Continue Mucinex
COPD
Continue O2 therapy, 3 L, wean off as tolerated
Continue home medication MDIs
Acapella
Incentive spirometer
Antitussives
Start
HIV
Last CD4 count greater than 200 low clinical suspicion for opportunistic infections
Continue HAART
GERD
Continue Dexilant
I personally reviewed and evaluated this patient with the resident. I agree with above unless if otherwise stated below.
I personally reviewed labs and imaging statistical consultant notes case management note
Original Note:
Family Physician
-
Family Physician: Loy Castillo MD
Chief Complaint
-
Fever, weakness
History of Present Illness
This is a 60-year-old male patient who presents to [facility] for concerns of fever and weakness. He states that he has been having symptoms for the past 1 week similar to her upper respiratory infection such as cough, chills, vomiting,
rhinorrhea, body aches and fever. Upon checking his temperature at home, it was 103 and he had taken Tylenol but it did not help. He states that he had difficulty walking long distances before he felt very weak.
He denies any history of travel but does state that he had gone to [place] last week with a friend who is now also facing similar symptoms.
He has hx of HIV and follows with ID outpatient.
Medical History
Past Medical History
Past Medical History: Reports Other
Additional Past Medical History:
Past medical history and archive reviewed:
HIV
Chronic sinusitis
Coronary artery disease status post 3 stent
Osteoarthritis
Chronic right bundle branch block
History of DVT and pulm embolism on Eliquis
Pulmonary lesion status post resection of the right upper lobe on 2022.
History of peptic ulcer and gastritis
Anxiety mood disorder
COPD and emphysema
Chronic back pain
History of septic meningitis
History of aspiration pneumonia
Past Surgical History: Reports Other (Resection of the right upper lobe 2022, Sinus surgery, Partial parotidectomy, Back surgery, cardiac stentingx3, Pilonidal cyst removal,Hemorrhoidectomy)
Social History
Tobacco: Former Smoker (Quit 15 years ago)
Alcohol: Other (drinks 1 bottle of red wine a month)
Drug: Marijuana and Other
Living: With Roomate
Employment: Disabled
Family History
Family History: Not pertinent
Allergies / Home Medications
Allergies reflects when Allergies were last updated in [facility].
Home Medications with original date entered in [facility]
Allergy/Medication List:
Allergies
Allergy/AdvReac Type Severity Reaction Status Date / Time
amoxicillin Allergy Unknown Rash/Tolerates Verified 11/14/25 22:37
cephalosporin
ciprofloxacin (From Cipro) Allergy Rash Verified 11/14/25 22:37
clindamycin Allergy Severe Verified 11/14/25 22:37
diarrhea
cobicistat (From Genvoya) Allergy Neutropenia Verified 11/14/25 22:37
codeine Allergy agitation Verified 11/14/25 22:37
elvitegravir (From Genvoya) Allergy Neutropenia Verified 11/14/25 22:37
emtricitabine (From Genvoya) Allergy Neutropenia Verified 11/14/25 22:37
moxifloxacin Allergy Rash Verified 11/14/25 22:37
moxifloxacin HCl (From Allergy Rash Verified 11/14/25 22:37
Avelox)
tenofovir (From Genvoya) Allergy Neutropenia Verified 11/14/25 22:37
Home Medications
dexlansoprazole 30 mg capsule,biphase delayed release (Dexilant) 60 mg PO DAILY Gastrointestinal issue 04/12/19
clonazepam 0.5 mg tablet 0.5 mg PO DAILY Mental Health/Anxiety 09/28/20
apixaban 5 mg tablet (Eliquis) 5 mg PO BID Blood Clot Prevention/Tx 05/16/24
bictegravir 50 mg-emtricitabine 200 mg-tenofovir alafenam 25 mg tablet (Biktarvy) 1 tab PO HS 05/16/24
valsartan 160 mg tablet 160 mg PO DAILY Heart Disease/Condition 05/16/24
fluticasone propionate 50 mcg/actuation nasal spray,suspension 2 spray intranasal DAILY Allergies 05/18/24
citalopram 40 mg tablet (Celexa) 40 mg PO HS Mental Health/Anxiety 01/05/25
clonazepam 0.5 mg tablet 1.5 mg PO HS Mental Health/Anxiety 11/15/25
fluticasone fur. 200 mcg-umeclid 62.5 mcg-vilant 25 mcg inhalat.powder (Trelegy Ellipta) 1 inh inhalation R DAILY Lung/Breathing Issues 11/15/25
Review of Systems
-
A 12 point ROS was completed and negative except as noted: Yes
Constitutional: Reports Fever
EENT: Reports Runny Nose
Abdomen/GI: Reports Vomiting
Musculoskeletal: Reports Other (Bodyaches)
Physical Exam
Vital Signs
Vital Signs
Temp Pulse Resp BP Pulse Ox
103 F H 91 27 131/70 92
11/15/25 08:06 11/15/25 06:00 11/15/25 06:00 11/15/25 06:00 11/15/25 06:35
Physical Exam
General: Conversant and Fever
HEENT: NormoCephalic
Respiratory: Wheezes (Mild wheezing)
Cardiac: S1/S2 and Regular Rhythm
GI: Soft, Non Tender and Non Distended
Musculoskeletal: No Clubbing and No Edema
Skin: Warm and Dry
Neuro: Awake, Alert and Oriented
Psych: Calm
Laboratory Results
-
11/14/25 22:44
11/14/25 22:44
Laboratory Results
Total Bilirubin 0.3 mg/dl (0.2-1.3) 11/14/25 22:44
AST 33 U/L (17-59) 11/14/25 22:44
ALT 21 U/L (0-50) 11/14/25 22:44
Alkaline Phosphatase 89 U/L (38-126) 11/14/25 22:44
Impression/Plan
-
IMPRESSION:This is a 60-year-old male patient who presents to [facility] for concerns of fever and weakness.
PLAN:
#Influenza A
- CXR: No acute cardiopulmonary process. Chronic obstructive pulmonary disease.
- continue oxygen therapy, currently at 3L, wean off as tolerated
- PT/OT consult
- COVID neg
- symptomatic control: tylenol as needed for fever control, mucolytics, antitussives
- monitor cbc and temperature
- continue contact precautions
- prednisone 40mg once daily for 5 days
- procal ordered
#COPD
- continue oxygen therapy, currently at 3L, wean off as tolerated
- continue home medications inhalers
- acapella, antitussives
- start duonebs prn for SOB or wheezing
#Hx of Pulmonary Embolism
- continue eliquis
#HIV positive
-continue home meds Biktarvy
- last known CD4 597 in 05/2025
-ID consult
#GERD
-continue dexilant
#HTN/CAD
-continue valsartan
#Anxiety
- continue home medications celexa and clonazepam
Code: Full
DVT: SCDs
[2025-11-15] MEDS: DELTASONE 40 MG PO (12:37)
[2025-11-15] MEDS: MUCINEX 600 MG PO ×2 (12:39→21:38)
[2025-11-15] MEDS: DIOVAN 160 MG PO (12:39)
--- NOTE | 2025-11-15 12:40 | CON.ID ---
Consultation
-
Date/Time Consultation Requested: 11/15/25 10:32
Date/Time Consultation Performed: 11/15/25 12:41
Requesting Provider: Dr Hernández
Performing Provider: Dr Liang
Reason for Consultation: pneumonia
Chief Complaint / Past History
Chief Complaint
fever, weakness
History of Present Illness
Mr Victor is a 60 year old male living with HIV last CD4 count 597, viral load 22 on 06/16/25 with persistent low level viremia on Biktarvy, COPD not on home O2, C diff x1, he reports 1 week of fevers to 103, chills, cough, rhinorrhea, myalgias,
vomiting, weakness. His friend who he went to [place] also with respiratory symptoms.
Since arrival here he has been persistently febrile to 103, bp stable, on 2L NC saturating in the mid to high 90s, wbc 4.3, hgb 12.5, plt 183, no left shift, na 137, cr 1.1 at his baseline, t bili 0.3, ast 33, alt 21, alk phos 89, covid ag negative,
influenza A positive, CXR: COPD no acute CP process, patient currently on prednisone 40 mg, has not yet started tamiflu or antibiotics, ID is consulted for assistance with management.
Past History
Additional Past Medical History:
HIV
Chronic sinusitis
Coronary artery disease status post 3 stent
Osteoarthritis
Chronic right bundle branch block
History of DVT and pulm embolism on Eliquis
Pulmonary lesion status post resection of the right upper lobe on 2022.
History of peptic ulcer and gastritis
Anxiety mood disorder
COPD and emphysema
Chronic back pain
History of septic meningitis
History of aspiration pneumonia
Additional Past Surgical History:
(Resection of the right upper lobe 2022, Sinus surgery, Partial parotidectomy, Back surgery, cardiac stentingx3, Pilonidal cyst removal,Hemorrhoidectomy
Allergy History:
amoxicillin Allergy (Unknown, Verified 11/14/25 22:37)
Rash/Tolerates cephalosporin
ciprofloxacin (From Cipro) Allergy (Verified 11/14/25 22:37)
Rash
clindamycin Allergy (Verified 11/14/25 22:37)
Severe diarrhea
cobicistat (From Genvoya) Allergy (Verified 11/14/25 22:37)
Neutropenia
codeine Allergy (Verified 11/14/25 22:37)
agitation
elvitegravir (From Genvoya) Allergy (Verified 11/14/25 22:37)
Neutropenia
emtricitabine (From Genvoya) Allergy (Verified 11/14/25 22:37)
Neutropenia
moxifloxacin Allergy (Verified 11/14/25 22:37)
Rash
moxifloxacin HCl (From Avelox) Allergy (Verified 11/14/25 22:37)
Rash
tenofovir (From Genvoya) Allergy (Verified 11/14/25 22:37)
Neutropenia
Medications Reviewed: Yes
Social History
Tobacco: Former Smoker
Alcohol: Occasional
Drug: Marijuana
Family History
Family History: Not Pertinent
Review of Systems
Review of Systems
Constitutional: Reports Fever
EENT: Reports Runny Nose
Abdomen/GI: Reports Vomiting
Musculoskeletal: Reports Other (Bodyaches)
A 12 point ROS was completed and negative except as noted: Yes
Vital Signs
Temp Pulse Resp BP Pulse Ox
101.2 F H 82 21 124/67 99
11/15/25 09:17 11/15/25 12:15 11/15/25 12:15 11/15/25 09:00 11/15/25 12:15
Physical Exam
Physical Exam
Constitutional: Other (sick but not toxic)
Cardiovascular: Regular Rate and S1/S2; Negative Murmur or Rub
Pulmonary: Clear, Symmetric and Non Labored; Negative Wheezes, Rales or Rhonchi
Gastrointestinal: Soft, Non Tender, Non Distended and Normal Bowel Sounds
Skin: Warm and Dry; Negative Rash or Jaundice
Lab / Diagnostic Study Results
11/14/25 22:44
11/14/25:44
Abs Immat Gran (auto) 0.0 10^3/uL (0-0.05) 11/14/25:44
Absolute Neuts (auto) 1.6 10^3/uL (1.4-6.5) 11/14/25:44
Absolute Lymphs (auto) 2.0 10^3/uL (1.2-3.4) 11/14/25:44
Absolute Monos (auto) 0.6 10^3/uL (0.1-0.6) 11/14/25:44
Absolute Basos (auto) 0.0 10^3/uL (0-0.2) 11/14/25:44
Immature Gran % 0.2 % (0-0.5) 11/14/25:44
Neutrophils % 37.7 % (42.2-75.2) L 11/14/25:44
Lymphocytes % 46.6 % (20.5-51.1) 11/14/25 22:44
Monocytes % 12.9 % (1.7-9.3) H 11/14/25:44
Eosinophils % 1.9 % (0-6) 11/14/25:44
Basophils % 0.7 % (0-2) 11/14/25 22:44
Microbiology Results
Micro:
11/14/25:44 Influenza Types A & B (FREDY) - Final
Nasal Swab Influenza A Positive, NAAT
Assessment / Plan
Influenza A
Fever
HIV with CD4 count in the 500s
COPD not on home O2
- given HIV start tamiflu, at least 5 and possibly 10 day course
- CXR without infiltrates, no need to start antibiotics at this time
- steroids per IM service
- follow fever curve and O2 requirements
- droplet precautions
- with CD4 count consistently in the 500s not at risk for opportunistic infections
[2025-11-15] MEDS: TAMIFLU 75 MG PO ×2 (13:47→21:40)
[2025-11-15] MEDS: TYLENOL 650 MG PO ×2 (13:52→23:46)
[2025-11-15 16:18] LABS: Procalcitonin 0.87 ng/ml (0.0-0.25)
[2025-11-15] MEDS: SYMBICORT 160/4.5 MCG INHALER 2 PUFF INH (19:14)
[2025-11-15] MEDS: ELIQUIS 5 MG PO (21:38)
[2025-11-15] MEDS: CELEXA 40 MG PO (21:40)
[2025-11-15] MEDS: BIKTARVY 50-200-25 MG TABLET 1 TABLET PO (21:57)
[2025-11-16] MEDS: NSS 1000 IV ×3 (04:06→21:32)
[2025-11-16 06:00] VITALS: BMI 27.7
[2025-11-16 06:27] LABS: Blood Urea Nitrogen 13 mg/dl (9-20); Calcium 8.0 mg/dl (8.4-10.2); Carbon Dioxide 18 mmol/L (22-30); Chloride 111 mmol/L (98-107); Estimated Creatinine Clearance 105 ml/min; Glucose 120 mg/dl (70-99); Potassium 3.8 mmol/L (3.5-5.1); Sodium 137 mmol/L (135-145); eGFR > 60.00
[2025-11-16 06:30] LABS: Hematocrit 33.3 % (39.0-52.0); Hemoglobin 10.9 g/dL (13.0-18.0); Mean Corp Hgb Conc. 32.7 g/dL (33.0-37.0); Mean Corpuscular Volume 76.4 fL (80.0-94.0); Platelet Count 141 10^3/uL (130-400); Red Cell Dist. Width 16.7 % (11.5-14.5)
[2025-11-16 07:00] VITALS: BP 119/80
[2025-11-16] MEDS: SYMBICORT 160/4.5 MCG INHALER 2 PUFF INH ×2 (07:12→19:16)
[2025-11-16] MEDS: SPIRIVA RESPIMAT 2.5 MCG 2 PUFF INH (07:12)
[2025-11-16] MEDS: DIOVAN 160 MG PO (07:13)
[2025-11-16] MEDS: ELIQUIS 5 MG PO ×2 (07:14→21:23)
[2025-11-16] MEDS: TAMIFLU 75 MG PO ×2 (07:14→21:23)
[2025-11-16] MEDS: MUCINEX 600 MG PO ×2 (07:14→21:23)
[2025-11-16] MEDS: DELTASONE 40 MG PO (07:14)
[2025-11-16] MEDS: NON-FORMULARY ITEM 1 UNIT PO (09:17)
--- NOTE | 2025-11-16 13:12 | W.PN.HOSP.TC ---
Addendum entered and electronically signed by Mike Marcelino MD 11/16/25 15:03:
COPD with exacerbation
Original Note:
Today's Communication/Plan
-
Assessment / Plan
Assessment / Plan
Acute hypoxemic respiratory failure secondary to influenza A and COPD
Started on Tamiflu per ID
Continue prednisone x 5 days
Continue nebulizers
Continue Mucinex
COPD
Continue O2 therapy, 3 L, wean off as tolerated
Continue home medication MDIs
Acapella
Incentive spirometer
Antitussives
Start
HIV
Last CD4 count greater than 200 low clinical suspicion for opportunistic infections
Continue HAART
GERD
Continue Dexilant
Hypertension
Continue valsartan
Anticipated Discharge: > 48 hours
Subjective/Interval History
-
Date of Service: November 16, 2025
Seen and examined. No new complaints. No acute overnight events.
Continues to feel weak requiring oxygen
Objective Data
-
Labs:
Laboratory Results
11/16/25
05:29
WBC 10.1
Hgb 10.9 L
Hct 33.3 L
Plt Count 141 D
Sodium 137
Potassium 3.8
Chloride 111 H
Carbon Dioxide 18 L
BUN 13
Creatinine 0.8
Glucose 120 H
Calcium 8.0 L
Vital Signs:
Vital Signs
Temp Pulse Resp BP Pulse Ox
98.6 F 89 16 119/80 95
11/16/25 07:00 11/16/25 07:13 11/16/25 07:13 11/16/25 07:00 11/16/25 07:13
I&O
11/15/25 11/16/25 11/17/25
06:59 06:59 06:59
Intake Total 720 / 720
Output Total 280 / 280 700 / 700
Balance 440 / 440 -700 / -700
[2025-11-16 13:56] VITALS: O2SAT 99
--- NOTE | 2025-11-16 14:28 | PN.CDI ---
CDI
- -
CDI:
Physician Documentation Request
Admit Date: 11/15/25 10:49
Dear Doctor Ryland,
Clinical Indicators:
Patient admitted with Influenza A.
11/15 H & P, Physical Exam: Respiratory: Wheezes (Mild wheezing)
Prednisone 40 mg po daily ordered.
Duonebs x1 in ED and ordered q4h prn
11/16 PN, 'Acute hypoxemic respiratory failure secondary to influenza A and COPD'
Please clarify which of the following accurately represents the patient's respiratory status:
COPD with exacerbation
COPD - stable chronic disease
Other
Use of terms such as suspected, likely, concern for, or probable (associated with a specific diagnosis that is being evaluated, monitored, or treated as if it exists) are acceptable and can be coded in the inpatient setting, when documented at the
time of discharge.
Thank you,
BELINDA Benedict RN
CDI Specialist
available via tiger text
Please use your independent medical judgment in providing your response.
[2025-11-16 15:06] VITALS: BP 141/91
--- NOTE | 2025-11-16 16:02 | W.PN.ID1 ---
Date of Service
Date of Service: November 16, 2025
Today's Communication
- given HIV start tamiflu, 5 day course
- start cefdinir and doxycycline (MRSA coverage) given elevated procalcitonin; 5 day course as well
Assessment / Plan
Influenza A
Fever
HIV with CD4 count in the 500s
COPD not on home O2
- given HIV start tamiflu, 5 day course
- start cefdinir and doxycycline (MRSA coverage) given elevated procalcitonin; 5 day course as well
- MRSA screen
- steroids per IM service
- follow fever curve and O2 requirements - suspect he may require home O2
- droplet precautions
Chief Complaint
-: Pneumonia
Subjective / Review of Systems
fever appears to be resolving
bp stable
now on 2L O2 but dyspneic even with walking a few paces
still exhausted and dyspneic
Vital Signs / Physical Exam
Vital Signs
Vital Signs
Temp Pulse Resp BP Pulse Ox
98.5 F 90 19 141/91 95
11/16/25 15:06 11/16/25 15:06 11/16/25 15:06 11/16/25 15:06 11/16/25 15:06
Physical Exam
Constitutional: Acutely Ill
Cardiovascular: Regular Rate and S1/S2; Negative Murmur or Rub
Pulmonary: Clear, Symmetric, Coarse and Other (labored breathing for several minutes after walking); Negative Wheezes or Rales
Gastrointestinal: Soft, Non Tender, Non Distended and Normal Bowel Sounds
Skin: Warm and Dry; Negative Rash or Jaundice
Objective Data
Lab Data
Lab Results
11/16/25 05:29
11/16/25 05:29
Estimated Creat Clear 105 ml/min 11/16/25 05:29
Total Bilirubin 0.3 mg/dl (0.2-1.3) 11/14/25 22:44
AST 33 U/L (17-59) 11/14/25 22:44
ALT 21 U/L (0-50) 11/14/25 22:44
Alkaline Phosphatase 89 U/L (38-126) 11/14/25 22:44
Most recent labs reviewed.
Micro Results:
11/14/25 22:44 Influenza Types A & B (FREDY) - Final
Nasal Swab Influenza A Positive, NAAT
--- NOTE | 2025-11-16 16:45 | CM ---
patient seen at bedside
IA completed
dx: Acute hypoxemic respiratory failure secondary to influenza A and COPD
Hx: HIV, COPD
Lives at [address] apt alone, no steps
PLOF: Independent, does not use assistive device
does drive
DME: [employer]ator states does not use
patient stated in the past had oxygen, but no longer has
home oxygen test to be ordered
Denies vn/Rehab
offered VN - options reviewed-prefer [facility]
notified liaison
PCP: Dr. Dino Castillo
Pharmacy: [facility]
PLAN: Home, CM to follow for oxygen needs
--- NOTE | 2025-11-16 17:57 | RESPNOTE ---
patient can only walk to door, he is moderately short of breath while walking, he feels he can not walk any further
[2025-11-16] MEDS: XANAX 0.5 MG PO (18:42)
[2025-11-16] MEDS: VIBRAMYCIN 100 MG PO (21:29)
[2025-11-16] MEDS: OMNICEF 300 MG PO (21:29)
[2025-11-16] MEDS: CELEXA 40 MG PO (21:30)
[2025-11-16] MEDS: BIKTARVY 50-200-25 MG TABLET 1 TABLET PO (22:03)
[2025-11-16 23:00] VITALS: BP 141/76
[2025-11-17 06:18] LABS: Hematocrit 30.8 % (39.0-52.0); Hemoglobin 10.3 g/dL (13.0-18.0); Mean Corp Hgb Conc. 33.4 g/dL (33.0-37.0); Mean Corpuscular Volume 75.1 fL (80.0-94.0); Platelet Count 157 10^3/uL (130-400); Red Cell Dist. Width 16.7 % (11.5-14.5)
[2025-11-17 07:05] LABS: Blood Urea Nitrogen 11 mg/dl (9-20); Calcium 8.2 mg/dl (8.4-10.2); Carbon Dioxide 20 mmol/L (22-30); Chloride 111 mmol/L (98-107); Estimated Creatinine Clearance 120 ml/min; Glucose 109 mg/dl (70-99); Potassium 3.7 mmol/L (3.5-5.1); Sodium 137 mmol/L (135-145); eGFR > 60.00
[2025-11-17] MEDS: SYMBICORT 160/4.5 MCG INHALER 2 PUFF INH (07:14)
[2025-11-17] MEDS: SPIRIVA RESPIMAT 2.5 MCG 2 PUFF INH (07:14)
[2025-11-17 07:49] VITALS: BP 130/76
[2025-11-17] MEDS: VIBRAMYCIN 100 MG PO (08:05)
[2025-11-17] MEDS: MUCINEX 600 MG PO (08:05)
[2025-11-17] MEDS: DELTASONE 40 MG PO (08:05)
[2025-11-17] MEDS: OMNICEF 300 MG PO (08:06)
[2025-11-17] MEDS: DIOVAN 160 MG PO (08:06)
[2025-11-17] MEDS: ELIQUIS 5 MG PO (08:07)
[2025-11-17] MEDS: NON-FORMULARY ITEM 1 UNIT PO (08:07)
[2025-11-17] MEDS: TAMIFLU 75 MG PO (08:07)
--- NOTE | 2025-11-17 09:43 | VNURNOTE ---
Addendum entered by Lucia Thompson RN 11/17/25 12:04:
Rec'ed update that [facility] can accept patient and see him for Start of Care visit on Thursday. Spoke with patient. He is agreeable to [facility]. Ilya from [facility] to deliver portable O2 to bedside.
[facility]
CM updated.
Original Note:
Home Health Liaison spoke with patient to discuss [facility] nurse/therapy, visits, schedule and homebound status. Patient is agreeable and understands that visits at home will be 2-3 x per week to assess and teach medical management. Patient is aware
that [facility] will contact them for start of care within a week after discharge from . Qualified for new home 02 - pt does not have a DME supplier preference. Will send Rx, clinicals to [facility] when available.
[facility] referral completed in [facility].
[2025-11-17 10:26] VITALS: BP 137/84; PULSE 70; O2SAT 92
--- NOTE | 2025-11-17 10:37 | W.PN.ID1 ---
Date of Service
Date of Service: November 17, 2025
Today's Communication
- continue tamiflu, 5 day course
- c/w cefdinir and doxycycline (MRSA coverage) given elevated procalcitonin; 5 day course as well
Assessment / Plan
Influenza A
Fever
HIV with CD4 count in the 500s
COPD not on home O2
- continue tamiflu, 5 day course
- c/w cefdinir and doxycycline (MRSA coverage) given elevated procalcitonin; 5 day course as well
- MRSA screen - negative
- steroids per IM service
- follow fever curve and O2 requirements - suspect he may require home O2
- droplet precautions
Chief Complaint
-: Pneumonia
Subjective / Review of Systems
afebrile
bp stable
remains on 2L with sats in the low 90s
less tired appearing, no dyspnea today
Vital Signs / Physical Exam
Vital Signs
Vital Signs
Temp Pulse Resp BP Pulse Ox
98.3 F 67 16 130/76 93
11/17/25 07:49 11/17/25 08:06 11/17/25 07:49 11/17/25 08:06 11/17/25 08:53
Physical Exam
Constitutional: No Acute Distress and Chronically Ill
Cardiovascular: Regular Rate and S1/S2; Negative Murmur or Rub
Pulmonary: Clear, Symmetric, Coarse and Non Labored; Negative Wheezes or Rales
Gastrointestinal: Soft, Non Tender, Non Distended and Normal Bowel Sounds
Skin: Warm and Dry; Negative Rash or Jaundice
Objective Data
Lab Data
Lab Results
11/17/25 06:03
11/17/25 06:03
Estimated Creat Clear 120 ml/min 11/17/25 06:03
Total Bilirubin 0.3 mg/dl (0.2-1.3) 11/14/25 22:44
AST 33 U/L (17-59) 11/14/25 22:44
ALT 21 U/L (0-50) 11/14/25 22:44
Alkaline Phosphatase 89 U/L (38-126) 11/14/25 22:44
Most recent labs reviewed.
Micro Results:
11/16/25 18:14 Nasal Screen MRSA (PCR) - Final
Nose MRSA not detected - performed by PCR methodology.
11/14/25 22:44 Influenza Types A & B (FREDY) - Final
Nasal Swab Influenza A Positive, NAAT
Care Review
Plan reviewed with: Physician (Dr Kim aguirre - dispo and duration)
--- NOTE | 2025-11-17 13:23 | CM ---
patient seen at bedside
[employer] to deliver oxygen tank here to [facility] today
per hospitalist discharge today
[facility] ACCEPTED-will visit on Thursday
IMM n/a
PLAN: home with [facility], [employer] for oxygen
[facility] FAX #: [phone]
step-dad to transport
--- NOTE | 2025-11-17 13:57 | W.DCSUMMARY ---
Discharge Summary
Discharge Data
Date of Admission: 11/15/25
Date of Discharge: 11/17/25
-
Pending Results: No
Hospital Course
60 history of HIV, CAD, osteoarthritis, right bundle branch block, DVT/PE on Eliquis, PAD, Anxiety disorder, COPD/emphysema, septic meningitis, aspiration pneumonia
Presenting with shortness of breath and hypoxia secondary to influenza that had been ongoing x 7 days. High procalcitonin. Infectious diseases consulted. Recommended due to being immunocompromised due to provide Tamiflu x 5 days along with
cefdinir Doxy for total of 5 days. Home oxygen assessment with SpO2 of 94% at rest and 86% on room air with exertion placed on 2 L during ambulation with improvement to 94%. As SpO2 with ambulation less than 88% Home oxygen is required especially
with ambulation to prevent further respiratory distress hypoxemia especially with ambulation. Albuterol therapy has been discussed and is ineffective in treating his hypoxemia.
CXR
IMPRESSION:
No acute cardiopulmonary process.
Seen and examined on the day of discharge which was 11/17/2025. No new complaints. No acute overnight events. Continues to have shortness of breath with ambulation that improves with oxygen therapy not with inhalers. But saying that she feels
strong enough to go home.
NAD
Scleral Anicteric
MMM
No JVD
CTABL
RRR, S1/S2
Soft, NT, ND, BS+
Warm, Dry
AAOx3
Calm
More than 30 minutes spent in discharge including
Final examination of the patient
Summarizing hospital stay
Instructions for continuing care to all relevant caregivers
Preparation of discharge records, prescriptions, and referral forms
Total time spent (in minutes): 33mins
Discharge Plan
-
Patient Disposition: Home with Home Care
Discharge Diagnosis/Procedures: Acute hypoxemic respiratory failure
Influenza A
Condition: Good
Diet: As tolerated
Activity: As tolerated
Activity Restrictions/Additional Instructions:
Presenting with shortness of breath and hypoxia secondary to influenza that had been ongoing x 7 days. High procalcitonin. Infectious diseases consulted. Recommended due to being immunocompromised due to provide Tamiflu x 5 days along with
cefdinir Doxy for total of 5 days. Home oxygen assessment with SpO2 of 94% at rest and 86% on room air with exertion placed on 2 L during ambulation with improvement to 94%. As SpO2 with ambulation less than 88% Home oxygen is required especially
with ambulation to prevent further respiratory distress hypoxemia especially with ambulation. Albuterol therapy has been discussed and is ineffective in treating his hypoxemia.
Referrals:
Loy Castillo MD [Family Provider, Internal Medicine]
Prescriptions:
New
ipratropium-albuterol 0.5 mg-3 mg(2.5 mg base)/3 mL Solution For Nebulization
3 ml inhalation R Q4HPRN PRN (Reason: SOB, wheezing) Qty: 180 0RF
prednisone 20 mg Tablet
40 mg PO DAILY Qty: 3 0RF
guaifenesin 600 mg Tablet Extended Release 12hr
600 mg PO Q12 Qty: 8 0RF
Deep Sea Nasal 0.65 % Aerosol,Darrow
2 spray intranasal QIDPRN PRN (Reason: nasal dryness) Qty: 44 0RF
doxycycline hyclate 100 mg Capsule
100 mg PO Q12 4 Days Qty: 8 0RF
oseltamivir 75 mg Capsule
75 mg PO BID 3 Days Qty: 6 0RF
cefdinir 300 mg Capsule
300 mg PO Q12 4 Days Qty: 8 0RF
Continued
dexlansoprazole [Dexilant] 30 MG capsule,biphase delayed releas
60 mg PO DAILY
clonazepam 0.5 MG tablet
0.5 mg PO DAILY
Eliquis 5 MG tablet
5 mg PO BID
valsartan 160 mg Tablet
160 mg PO DAILY
Biktarvy 50-200-25 mg Tablet
1 tab PO HS
fluticasone propionate 50 mcg/actuation Darrow,Suspension
2 spray INTRANASAL DAILY
citalopram [Celexa] 40 mg Tablet
40 mg PO HS
clonazepam 0.5 mg Tablet
1.5 mg PO HS
Trelegy Ellipta 200-62.5-25 mcg Blister With Device
1 inh INHALATION R DAILY
Discharge Orders:
Discharge Patient (As Directed); Ordered 11/17/25
Ordered By: Mike Marcelino
Discharge Date and Time
Print Language: MALAYSIAN
[2025-11-17 15:00] VITALS: BP 149/83
== END 2025-11-17 17:49 | disposition home health service (06) | DRG 193 ==
LOC: 3 WEST ACU 10:49
PROVIDERS: Student in an Organized Health Care Education/Training Program; ADMITTING PHYSICIAN Hospitalist; CONSULT PHYSICIAN Student in an Organized Health Care Education/Training Program; EMERGENCY PHYSICIAN Student in an Organized Health Care Education/Training Program; FAMILY PHYSICIAN Internal Medicine
DX: J10.1 Influenza due to other identified influenza virus with other respiratory manifestations (principal); J96.01 Acute respiratory failure with hypoxia; J44.1 Chronic obstructive pulmonary disease with (acute) exacerbation; Z87.891 Personal history of nicotine dependence; Z11.52 Encounter for screening for COVID-19; J43.9 Emphysema, unspecified; Z21 Asymptomatic human immunodeficiency virus [HIV] infection status; K21.9 Gastro-esophageal reflux disease without esophagitis; I11.0 Hypertensive heart disease with heart failure; I25.10 Atherosclerotic heart disease of native coronary artery without angina pectoris; Z79.01 Long term (current) use of anticoagulants
CPT/HCPCS: 71046; 80048; 80053; 84145; 85025; 85027; 87502; 87641; 87811; 93005; 94640; 94761; 97166; 97530